=== PATIENT | male | born 1960 | race Caucasian/White ===

== ENCOUNTER 2016-12-22 09:35 | Emergency (ER) | payer MEDICAID ==
[~2016-12-22] VITALS: Ht 172.7 cm; Wt 118.2 kg
[~2016-12-22 09:35] MED LIST: ATEN25 PO; ATOR40TA28 PO; LISI-661 PO
[2016-12-22] MEDS ORDERED: BUME1TAB30 PO (09:41)
[2016-12-22] MEDS ORDERED: SPIR50 PO (09:41)
[2016-12-22] MEDS ORDERED: RANI150T7 PO (09:41)
[2016-12-22] MEDS ORDERED: FURO40 PO (09:41)
[2016-12-22] MEDS ORDERED: ONDANSETRON HCL 4 MG/2 ML VIAL IVP ONE (10:45)
[2016-12-22] MEDS ORDERED: SODIUM CHLORIDE 0.9% 1,000 ML IV ONE (10:45)
[2016-12-22] MEDS ORDERED: FAMOTIDINE 10 MG/ML 2 ML VIAL IVP ONE (10:45)
[2016-12-22] MEDS ORDERED: HYDROmorphone 2 MG/ML SYRINGE IVP ONE (10:45)
[2016-12-22 10:53] LABS: BASOPHILS % (AUTO) 0.5 % (0.0-2.0); EOSINOPHILS % (AUTO) 4.8 % (1.0-6.0); HEMATOCRIT 39.9 % (41-53); HEMOGLOBIN 13.2 g/dL (13.5-17.5); LYMPHOCYTES # (AUTO) 2.5 K/uL (1.0-4.8); LYMPHOCYTES % (AUTO) 45.2 % (22.0-44.0); MEAN CORPUSCULAR HEMOGLOBIN 32.6 pg (26.0-34.0); MEAN CORPUSCULAR VOLUME 99 fL (80-100); MONOCYTES # (AUTO) 0.8 K/uL (0.1-1.0); MONOCYTES % (AUTO) 14.9 % (2.0-9.0); NEUTROPHILS # (AUTO) 1.9 K/uL (1.8-7.7); NEUTROPHILS % (AUTO) 34.6 % (40.0-70.0); RED BLOOD CELL COUNT(AUTO) 4.03 MIL/uL (4.50-5.90); RED CELL DISTRIBUTION WIDTH 17.2 % (11.5-14.5); WHITE BLOOD COUNT (AUTO) 5.6 K/uL (4.5-11.0)
[2016-12-22 11:04] LABS: ANION GAP 6 mmol/L (8-16); CALCIUM, TOTAL 8.4 mg/dL (8.8-10.5); CARBON DIOXIDE 29 mmol/L (22-29); CHLORIDE 107 mmol/L (98-107); CREATININE 0.74 mg/dL (0.60-1.30); GLOMERULAR FILTR. RATE CALC > 60 mL/min (>60); POTASSIUM 3.7 mmol/L (3.5-5.1); SODIUM SERUM 142 mmol/L (136-145); UREA NITROGEN, BLOOD 7 mg/dL (7-18)
[2016-12-22 11:06] LABS: INR 1.2 (0.9-1.1)
[2016-12-22 11:14] LABS: B-TYPE NATRIURETIC PEPTIDE 31 pg/mL (0-100)
[2016-12-22 11:18] LABS: PLATELET COUNT (AUTO) 98 K/uL (150-450); RBC MORPHOLOGY COMMENT ABNORMAL RBC MORPH
[2016-12-22 11:33] LABS: ALANINE AMINOTRANSFERASE 42 U/L (12-78); ALBUMIN 2.3 g/dL (3.4-5.0); ASPARTATE AMINOTRANSFERASE 51 U/L (15-37); BILIRUBIN,TOTAL 2.1 mg/dL (0.1-1.0); CREATINE KINASE MB 1.1 ng/mL (0-5); CREATINE KINASE, TOTAL 227 U/L (39-308); TOTAL PROTEIN, SERUM 6.3 g/dL (6.4-8.2)
[2016-12-22 12:35] VITALS: BP 142/87
== END 2016-12-22 12:45 | disposition home or self-care (01) ==
LOC: EMS 09:37
DX: K29.70 Gastritis, unspecified, without bleeding (principal); K21.9 Gastro-esophageal reflux disease without esophagitis; I25.10 Atherosclerotic heart disease of native coronary artery without angina pectoris; I10 Essential (primary) hypertension; I25.2 Old myocardial infarction; F17.210 Nicotine dependence, cigarettes, uncomplicated
CPT/HCPCS: 71010; 76700; 80053; 82550; 82553; 83690; 83880; 84484; 85025; 85610; 85730; 93005; 96361; 96374; 96375; 99285; J1170; J2405; J3490; J7030

== ENCOUNTER 2016-12-31 21:12 | Emergency (ER) | payer MEDICAID ==
[~2016-12-31] VITALS: Ht 172.7 cm; Wt 122.7 kg
[~2016-12-31 21:12] MED LIST changes: +BUME1TAB30 PO; +FURO40 PO; +RANI150T7 PO; +SPIR50 PO
[2016-12-31] MEDS ORDERED: DICL500 PO (21:32)
[2016-12-31 21:59] LABS: BASOPHILS # (AUTO) 0.06 K/uL (0.00-0.20); EOSINOPHILS # (AUTO) 0.23 K/uL (0.00-0.70); EOSINOPHILS % (AUTO) 3.55 % (1.0-6.0); HEMATOCRIT 39.4 % (41-53); HEMOGLOBIN 13.3 g/dL (13.5-17.5); LYMPHOCYTES % (AUTO) 46.7 % (22.0-44.0); MEAN CORPUSCULAR HEMOGLOBIN 32.5 pg (26.0-34.0); MEAN CORPUSCULAR HGB CONC 33.8 G/dL (31.0-37.0); MEAN CORPUSCULAR VOLUME 96 fL (80-100); MONOCYTES # (AUTO) 0.9 K/uL (0.1-1.0); MONOCYTES % (AUTO) 13.9 % (2.0-9.0); NEUTROPHILS # (AUTO) 2.3 K/uL (1.8-7.7); NEUTROPHILS % (AUTO) 34.9 % (40.0-70.0); PLATELET COUNT (AUTO) 117 K/uL (150-450); RED CELL DISTRIBUTION WIDTH 16.2 % (11.5-14.5); WHITE BLOOD COUNT (AUTO) 6.5 K/uL (4.5-11.0)
[2016-12-31 22:10] LABS: ANION GAP 5 mmol/L (8-16); CALCIUM, TOTAL 8.9 mg/dL (8.8-10.5); CARBON DIOXIDE 28 mmol/L (22-29); CHLORIDE 102 mmol/L (98-107); GLOMERULAR FILTR. RATE CALC > 60 mL/min (>60); SODIUM SERUM 135 mmol/L (136-145); UREA NITROGEN, BLOOD 11 mg/dL (7-18)
[2016-12-31 22:14] LABS: ALANINE AMINOTRANSFERASE 89 U/L (12-78); ALBUMIN 2.4 g/dL (3.4-5.0); ASPARTATE AMINOTRANSFERASE 113 U/L (15-37); BILIRUBIN,TOTAL 1.5 mg/dL (0.1-1.0); TOTAL PROTEIN, SERUM 6.7 g/dL (6.4-8.2)
[2017-01-01 01:16] LABS: APPEARANCE,URINE CLOUDY (CLEAR); GLUCOSE, URINE (UA) NEGATIVE (NEGATIVE); KETONES,URINE NEGATIVE (NEGATIVE); LEUKOCYTE ESTERASE ,URINE NEGATIVE (NEGATIVE); OCCULT BLOOD,URINE NEGATIVE (NEGATIVE); PROTEIN,URINE NEGATIVE (NEGATIVE)
[2017-01-01 01:18] LABS: ADD UA MICROSCOPIC NO
[2017-01-01] MEDS ORDERED: ACETAMINOPHEN 325 MG TABLET PO ONE (01:30)
[2017-01-01 01:34] VITALS: BP 127/82
[2017-01-01] MEDS ORDERED: DICYCLOMINE HCL 10 MG CAPSULE PO ONE (01:45)
== END 2017-01-01 01:38 | disposition home or self-care (01) ==
LOC: EMS 21:13
DX: R10.9 Unspecified abdominal pain (principal); F17.210 Nicotine dependence, cigarettes, uncomplicated; I25.10 Atherosclerotic heart disease of native coronary artery without angina pectoris; K21.9 Gastro-esophageal reflux disease without esophagitis; I10 Essential (primary) hypertension; I25.2 Old myocardial infarction; Z79.899 Other long term (current) drug therapy
CPT/HCPCS: 99284

== ENCOUNTER 2017-01-05 16:13 | Inpatient (IN) | payer MEDICAID ==
[~2017-01-05] VITALS: Ht 177.8 cm; Wt 118.5 kg
[~2017-01-05 16:13] MED LIST changes: +DICL500 PO
[2017-01-05] MEDS ORDERED: SODIUM CHLORIDE 0.9% 500 ML IV ONE (19:00)
[2017-01-05] MEDS ORDERED: ASPIRIN 81 MG CHEWABLE TABLET PO ONE (19:00)
[2017-01-05] MEDS ORDERED: NITROGLYCERIN 2% (1 GM=INCH) PACKET TP ONE (19:00)
[2017-01-05 19:11] LABS: BASOPHILS % (AUTO) 0.4 % (0.0-2.0); EOSINOPHILS % (AUTO) 0.2 % (1.0-6.0); HEMOGLOBIN 12.8 g/dL (13.5-17.5); LYMPHOCYTES # (AUTO) 2.5 K/uL (1.0-4.8); LYMPHOCYTES % (AUTO) 24.9 % (22.0-44.0); MEAN CORPUSCULAR HGB CONC 32.8 G/dL (31.0-37.0); MEAN CORPUSCULAR VOLUME 98 fL (80-100); MONOCYTES % (AUTO) 9.6 % (2.0-9.0); NEUTROPHILS # (AUTO) 6.5 K/uL (1.8-7.7); NEUTROPHILS % (AUTO) 64.9 % (40.0-70.0); PLATELET COUNT (AUTO) 121 K/uL (150-450); RED CELL DISTRIBUTION WIDTH 16.3 % (11.5-14.5)
[2017-01-05 19:22] LABS: ANION GAP 5 mmol/L (8-16); CALCIUM, TOTAL 8.4 mg/dL (8.8-10.5); CARBON DIOXIDE 31 mmol/L (22-29); CHLORIDE 102 mmol/L (98-107); CREATININE 1.04 mg/dL (0.60-1.30); GLOMERULAR FILTR. RATE CALC > 60 mL/min (>60); POTASSIUM 4.2 mmol/L (3.5-5.1); SODIUM SERUM 138 mmol/L (136-145); UREA NITROGEN, BLOOD 24 mg/dL (7-18)
[2017-01-05 19:24] LABS: INR 1.3 (0.9-1.1); PROTHROMBIN TIME 13.8 SEC (9.4-11.6)
[2017-01-05 19:29] LABS: ALANINE AMINOTRANSFERASE 184 U/L (12-78); ALBUMIN 2.7 g/dL (3.4-5.0); ASPARTATE AMINOTRANSFERASE 159 U/L (15-37); BILIRUBIN,TOTAL 3.2 mg/dL (0.1-1.0); TOTAL PROTEIN, SERUM 6.9 g/dL (6.4-8.2)
[2017-01-05] MEDS ORDERED: ONDANSETRON HCL 4 MG/2 ML VIAL IVP ONE (19:30)
[2017-01-05] MEDS ORDERED: MORPHINE SULFATE 4 MG/ML SYRINGE IVP ONE (19:30)
[2017-01-05] MEDS ORDERED: ONDANSETRON HCL 4 MG/2 ML VIAL IVP PRN (21:00)
[2017-01-05] MEDS ORDERED: 0.9% SODIUM CHLORIDE 10 ML SYRINGE IVP PRN (21:00)
[2017-01-05] MEDS ORDERED: ACETAMINOPHEN 325 MG TABLET PO PRN (21:00)
[2017-01-05 21:27] VITALS: BP 142/79
[2017-01-05 23:22] VITALS: BP 141/89
[2017-01-06 03:59] VITALS: BP 127/61
[2017-01-06] MEDS ORDERED: MORPHINE SULFATE 2 MG/ML SYRINGE IVP PRN (05:30)
[2017-01-06] MEDS ORDERED: ONDANSETRON HCL 4 MG/2 ML VIAL IVP PRN (05:30)
[2017-01-06] MEDS ORDERED: PANTOPRAZOLE SODIUM 80 MG in SODIUM CHLORIDE 0.9% 50 ML IV ONE (06:15)
[2017-01-06] MEDS: DEXTROSE 5%-0.45% SODIUM CHL 1,000 ML IV SCH ×3 (07:01→23:33)
[2017-01-06 07:16] VITALS: BP 132/74
[2017-01-06] MEDS: PANTOPRAZOLE SODIUM 80 MG in SODIUM CHLORIDE 0.9% 500 ML IV SCH ×2 (07:40→17:13)
[2017-01-06 11:27] VITALS: BP 143/83
[2017-01-06] MEDS: CefTRIAXone 1 GM/DEXTROSE 50 ML IV SCH (14:51)
[2017-01-06 15:19] VITALS: BP 127/65
[2017-01-06 19:37] VITALS: BP 136/65
[2017-01-07] VITALS (7 sets, daily range): BP systolic 119–144; BP diastolic 7–78
[2017-01-07] MEDS: PANTOPRAZOLE SODIUM 80 MG in SODIUM CHLORIDE 0.9% 500 ML IV SCH ×2 (04:10→17:26)
[2017-01-07 06:24] LABS: BASOPHILS % (AUTO) 0.6 % (0.0-2.0); EOSINOPHILS % (AUTO) 4.4 % (1.0-6.0); HEMATOCRIT 30.6 % (41-53); HEMOGLOBIN 9.9 g/dL (13.5-17.5); MEAN CORPUSCULAR HEMOGLOBIN 32.1 pg (26.0-34.0); MEAN CORPUSCULAR HGB CONC 32.4 G/dL (31.0-37.0); MEAN CORPUSCULAR VOLUME 99 fL (80-100); MONOCYTES # (AUTO) 0.6 K/uL (0.1-1.0); MONOCYTES % (AUTO) 9.8 % (2.0-9.0); NEUTROPHILS # (AUTO) 2.5 K/uL (1.8-7.7); NEUTROPHILS % (AUTO) 39.2 % (40.0-70.0); PLATELET COUNT (AUTO) 88 K/uL (150-450); RED BLOOD CELL COUNT(AUTO) 3.09 MIL/uL (4.50-5.90); RED CELL DISTRIBUTION WIDTH 15.9 % (11.5-14.5); WHITE BLOOD COUNT (AUTO) 6.5 K/uL (4.5-11.0)
[2017-01-07 06:50] LABS: ALANINE AMINOTRANSFERASE 127 U/L (12-78); ALBUMIN 1.9 g/dL (3.4-5.0); ANION GAP 4 mmol/L (8-16); ASPARTATE AMINOTRANSFERASE 107 U/L (15-37); CARBON DIOXIDE 28 mmol/L (22-29); CHLORIDE 106 mmol/L (98-107); CREATININE 0.88 mg/dL (0.60-1.30); GLOMERULAR FILTR. RATE CALC > 60 mL/min (>60); POTASSIUM 3.4 mmol/L (3.5-5.1); SODIUM SERUM 138 mmol/L (136-145); TOTAL PROTEIN, SERUM 5.1 g/dL (6.4-8.2); UREA NITROGEN, BLOOD 16 mg/dL (7-18)
[2017-01-07] MEDS ORDERED: SODIUM CHLORIDE 0.9% 1,000 ML IV ONE ×2 (07:38→09:00)
[2017-01-07] MEDS: DEXTROSE 5%-0.45% SODIUM CHL 1,000 ML IV SCH ×2 (08:19→21:08)
[2017-01-07] MEDS ORDERED: LIDOCAINE HCL 2% VISCOUS 15 ML SOLUTION UDCUP PO ONE (09:00)
[2017-01-07] MEDS: CefTRIAXone 1 GM/DEXTROSE 50 ML IV SCH (14:22)
[2017-01-07] MEDS ORDERED: HYDROCODONE/ACETAMINOPHEN 5-325 MG TABLET PO PRN (14:30)
[2017-01-07] MEDS ORDERED: POTASSIUM CHLORIDE 20 MEQ ER TABLET PO ONE (14:30)
[2017-01-08] MEDS: PANTOPRAZOLE SODIUM 80 MG in SODIUM CHLORIDE 0.9% 500 ML IV SCH ×2 (03:09→13:41)
[2017-01-08 04:29] VITALS: BP 121/60
[2017-01-08] MEDS: DEXTROSE 5%-0.45% SODIUM CHL 1,000 ML IV SCH ×2 (05:05→13:56)
[2017-01-08 07:09] LABS: BASOPHILS % (AUTO) 0.6 % (0.0-2.0); EOSINOPHILS % (AUTO) 4.7 % (1.0-6.0); HEMATOCRIT 29.3 % (41-53); HEMOGLOBIN 9.6 g/dL (13.5-17.5); LYMPHOCYTES % (AUTO) 47.5 % (22.0-44.0); MEAN CORPUSCULAR HEMOGLOBIN 32.6 pg (26.0-34.0); MEAN CORPUSCULAR HGB CONC 32.8 G/dL (31.0-37.0); MEAN CORPUSCULAR VOLUME 99 fL (80-100); MONOCYTES # (AUTO) 0.5 K/uL (0.1-1.0); NEUTROPHILS # (AUTO) 1.5 K/uL (1.8-7.7); NEUTROPHILS % (AUTO) 35.2 % (40.0-70.0); PLATELET COUNT (AUTO) 85 K/uL (150-450); RED BLOOD CELL COUNT(AUTO) 2.95 MIL/uL (4.50-5.90); RED CELL DISTRIBUTION WIDTH 15.9 % (11.5-14.5); WHITE BLOOD COUNT (AUTO) 4.2 K/uL (4.5-11.0)
[2017-01-08 07:41] LABS: ALANINE AMINOTRANSFERASE 122 U/L (12-78); ALBUMIN 1.7 g/dL (3.4-5.0); ANION GAP 5 mmol/L (8-16); ASPARTATE AMINOTRANSFERASE 106 U/L (15-37); BILIRUBIN,TOTAL 1.8 mg/dL (0.1-1.0); CARBON DIOXIDE 25 mmol/L (22-29); CHLORIDE 107 mmol/L (98-107); CREATININE 0.84 mg/dL (0.60-1.30); GLOMERULAR FILTR. RATE CALC > 60 mL/min (>60); POTASSIUM 3.6 mmol/L (3.5-5.1); SODIUM SERUM 137 mmol/L (136-145); UREA NITROGEN, BLOOD 11 mg/dL (7-18)
[2017-01-08 08:31] VITALS: BP 114/62
[2017-01-08 12:17] LABS: HEPATITIS Bs ANTIGEN SCREEN P Negative (Negative); HEPATITIS C AB SCREEN <0.1 s/co ratio (0.0-0.9)
[2017-01-08 12:20] VITALS: BP 128/68
[2017-01-08] MEDS: CefTRIAXone 1 GM/DEXTROSE 50 ML IV SCH (14:38)
[2017-01-08] MEDS ORDERED: LANS30 PO (15:15)
[2017-01-08] MEDS ORDERED: CLAR500T3 PO (15:16)
[2017-01-08] MEDS ORDERED: AMOX500T2 PO (15:17)
[2017-01-08] MEDS ORDERED: PROPOFOL 1% 20 ML VIAL IVP ONE (18:59)
[2017-01-08] MEDS ORDERED: LIDOCAINE HCL/PF 2% 5 ML VIAL IM ONE (18:59)
[2017-01-08] MEDS ORDERED: METOCLOPRAMIDE HCL 5 MG/ML 2 ML VIAL IVP ONE (18:59)
== END 2017-01-08 19:00 | disposition home or self-care (01) | DRG 241 ==
LOC: EMS 16:14 → 5N 20:35
PROVIDERS: ADMIT Family Medicine; ATTEND Family Medicine
PROC: 0DB68ZX Excision of Stomach, Via Natural or Artificial Opening Endoscopic, Diagnostic (ICD-10-PCS; principal; 2017-01-07 09:30)
DX: K26.9 Duodenal ulcer, unspecified as acute or chronic, without hemorrhage or perforation (principal); E43 Unspecified severe protein-calorie malnutrition; K76.6 Portal hypertension; K29.70 Gastritis, unspecified, without bleeding; K92.2 Gastrointestinal hemorrhage, unspecified; K21.0 Gastro-esophageal reflux disease with esophagitis; K31.89 Other diseases of stomach and duodenum; H53.8 Other visual disturbances; I25.10 Atherosclerotic heart disease of native coronary artery without angina pectoris; B17.9 Acute viral hepatitis, unspecified; F17.210 Nicotine dependence, cigarettes, uncomplicated; I10 Essential (primary) hypertension; K27.9 Peptic ulcer, site unspecified, unspecified as acute or chronic, without hemorrhage or perforation; Z68.37 Body mass index [BMI] 37.0-37.9, adult; Z95.5 Presence of coronary angioplasty implant and graft; Z79.82 Long term (current) use of aspirin; I25.2 Old myocardial infarction
CPT/HCPCS: 76705; 80074; 80307; 82948; 83735; 88305; 88312; 93005; 96361; 96374; 96375; 99285; C9113; J0696; J2270; J2405; J2704; J2765; J3490; J7030; J7040; J7050

== ENCOUNTER 2017-02-11 21:52 | Inpatient (IN) | payer MEDICAID ==
[~2017-02-11] VITALS: Ht 172.7 cm; Wt 128.0 kg
[~2017-02-11 21:52] MED LIST changes: +AMOX500T2 PO; +CLAR500T3 PO; -DICL500 PO; +LANS30 PO; -RANI150T7 PO
[2017-02-11] MEDS ORDERED: RANI150T7 PO (22:36)
[2017-02-11 23:05] LABS: BASOPHILS # (AUTO) 0.12 K/uL (0.00-0.20); EOSINOPHILS # (AUTO) 0.13 K/uL (0.00-0.70); EOSINOPHILS % (AUTO) 2.29 % (1.0-6.0); HEMATOCRIT 32.4 % (41-53); HEMOGLOBIN 10.9 g/dL (13.5-17.5); LYMPHOCYTES # (AUTO) 1.9 K/uL (1.0-4.8); LYMPHOCYTES % (AUTO) 32.9 % (22.0-44.0); MEAN CORPUSCULAR HEMOGLOBIN 31.5 pg (26.0-34.0); MEAN CORPUSCULAR HGB CONC 33.8 G/dL (31.0-37.0); MEAN CORPUSCULAR VOLUME 93 fL (80-100); MONOCYTES # (AUTO) 0.7 K/uL (0.1-1.0); MONOCYTES % (AUTO) 12.7 % (2.0-9.0); NEUTROPHILS # (AUTO) 2.9 K/uL (1.8-7.7); PLATELET COUNT (AUTO) 103 K/uL (150-450); RED BLOOD CELL COUNT(AUTO) 3.48 MIL/uL (4.50-5.90); WHITE BLOOD COUNT (AUTO) 5.8 K/uL (4.5-11.0)
[2017-02-11 23:14] LABS: INR 1.3 (0.9-1.1); PROTHROMBIN TIME 13.7 SEC (9.4-11.6)
[2017-02-11 23:17] LABS: RBC MORPHOLOGY COMMENT ABNORMAL RBC MORPH
[2017-02-11 23:21] LABS: B-TYPE NATRIURETIC PEPTIDE 10 pg/mL (0-100)
[2017-02-11 23:43] LABS: ALANINE AMINOTRANSFERASE 469 U/L (12-78); ALBUMIN 2.1 g/dL (3.4-5.0); ANION GAP 7 mmol/L (8-16); BILIRUBIN,TOTAL 1.5 mg/dL (0.1-1.0); CARBON DIOXIDE 23 mmol/L (22-29); CHLORIDE 105 mmol/L (98-107); CREATININE 1.03 mg/dL (0.60-1.30); GLOMERULAR FILTR. RATE CALC > 60 mL/min (>60); POTASSIUM 4.7 mmol/L (3.5-5.1); SODIUM SERUM 135 mmol/L (136-145); TOTAL PROTEIN, SERUM 5.6 g/dL (6.4-8.2); UREA NITROGEN, BLOOD 28 mg/dL (7-18)
[2017-02-11 23:54] LABS: ASPARTATE AMINOTRANSFERASE 1493 U/L (15-37)
[2017-02-12 00:15] LABS: CALCIUM, TOTAL 8.1 mg/dL (8.8-10.5)
[2017-02-12 00:23] LABS: APPEARANCE,URINE CLOUDY (CLEAR); GLUCOSE, URINE (UA) NEGATIVE (NEGATIVE); KETONES,URINE NEGATIVE (NEGATIVE); LEUKOCYTE ESTERASE ,URINE NEGATIVE (NEGATIVE); OCCULT BLOOD,URINE LARGE (NEGATIVE); PROTEIN,URINE POS 1+ (NEGATIVE)
[2017-02-12] MEDS ORDERED: ASPIRIN 325 MG TABLET PO ONE (00:30)
[2017-02-12] MEDS ORDERED: ONDANSETRON HCL 4 MG/2 ML VIAL IVP ONE (00:30)
[2017-02-12] MEDS ORDERED: HYDROmorphone 2 MG/ML SYRINGE IVP ONE (00:30)
[2017-02-12 00:31] LABS: ADD UA MICROSCOPIC YES
[2017-02-12 01:11] LABS: SQUAMOUS EPITHELIAL CELL,UR Rare /LPF (None Seen)
[2017-02-12 01:16] LABS: CREATINE KINASE, TOTAL 77565 U/L (39-308)
[2017-02-12] MEDS ORDERED: BARIUM SULFATE 0.1% SUSPENSION 450 ML BOTTLE PO ONE (02:30)
[2017-02-12] MEDS ORDERED: ACETAMINOPHEN 325 MG TABLET PO PRN ×2 (02:30→10:45)
[2017-02-12] MEDS ORDERED: 0.9% SODIUM CHLORIDE 10 ML SYRINGE IVP PRN (02:30)
[2017-02-12] MEDS ORDERED: SODIUM CHLORIDE 0.45% 1,000 ML IV ONE (02:30)
[2017-02-12] MEDS ORDERED: ONDANSETRON HCL 4 MG/2 ML VIAL IVP PRN (02:30)
[2017-02-12 09:00] VITALS: BP 115/73
[2017-02-12] MEDS ORDERED: FUROSEMIDE 40 MG TABLET PO SCH (11:30)
[2017-02-12 11:35] VITALS: BP 118/57
[2017-02-12] MEDS: ATORVASTATIN CALCIUM 40 MG TABLET PO SCH (11:40)
[2017-02-12] MEDS: NITROGLYCERIN 2% (1 GM=INCH) PACKET TP SCH ×2 (11:41→20:16)
[2017-02-12] MEDS: ATENOLOL 25 MG TABLET PO SCH (11:41)
[2017-02-12] MEDS: LISINOPRIL 10 MG TABLET PO SCH (11:41)
[2017-02-12] MEDS ORDERED: BUMETANIDE 1 MG TABLET PO SCH (12:00)
[2017-02-12] MEDS ORDERED: SODIUM CHLORIDE 0.45% 1,000 ML IV SCH (12:30)
[2017-02-12] MEDS ORDERED: SODIUM BICARBONATE 75 MEQ in SODIUM CHLORIDE 0.45% 1,000 ML IV ONE (13:15)
[2017-02-12 13:32] LABS: CREATINE KINASE MB 25.5 ng/mL (0-5)
[2017-02-12] MEDS ORDERED: PNEUMOCOCCAL VACCINE POLYVALENT 0.5 ML VIAL [PPSV23] IM ONE (14:15)
[2017-02-12 14:39] LABS: ANION GAP 3 mmol/L (8-16); BILIRUBIN,TOTAL 1.8 mg/dL (0.1-1.0); CALCIUM, TOTAL 7.5 mg/dL (8.8-10.5); CARBON DIOXIDE 27 mmol/L (22-29); CHLORIDE 101 mmol/L (98-107); CREATININE 0.86 mg/dL (0.60-1.30); GLOMERULAR FILTR. RATE CALC > 60 mL/min (>60); POTASSIUM 4.8 mmol/L (3.5-5.1); SODIUM SERUM 131 mmol/L (136-145); UREA NITROGEN, BLOOD 25 mg/dL (7-18)
[2017-02-12 14:40] LABS: ALANINE AMINOTRANSFERASE 423 U/L (12-78)
[2017-02-12 14:41] LABS: ASPARTATE AMINOTRANSFERASE 1173 U/L (15-37)
[2017-02-12] MEDS: HEPARIN SODIUM,PORCINE 5,000 UNITS/ML VIAL SQ SCH (15:09)
[2017-02-12] MEDS: HYDROCODONE/ACETAMINOPHEN 5-325 MG TABLET PO PRN (15:34)
[2017-02-12 15:35] VITALS: BP 111/61
[2017-02-12 19:33] LABS: CREATINE KINASE MB 18.7 ng/mL (0-5)
[2017-02-12 19:56] VITALS: BP 112/56
[2017-02-12 23:38] VITALS: BP 111/56
[2017-02-13] VITALS (7 sets, daily range): BP systolic 105–121; BP diastolic 50–67
[2017-02-13] MEDS: HEPARIN SODIUM,PORCINE 5,000 UNITS/ML VIAL SQ SCH ×4 (00:02→23:42)
[2017-02-13] MEDS: NITROGLYCERIN 2% (1 GM=INCH) PACKET TP SCH ×5 (00:03→23:42)
[2017-02-13] MEDS: HYDROCODONE/ACETAMINOPHEN 5-325 MG TABLET PO PRN ×3 (06:30→22:23)
[2017-02-13] MEDS: RANITIDINE HCL 150 MG TABLET PO SCH ×2 (08:02→21:16)
[2017-02-13] MEDS: ATENOLOL 25 MG TABLET PO SCH (08:02)
[2017-02-13] MEDS: LISINOPRIL 10 MG TABLET PO SCH (08:03)
[2017-02-13] MEDS: ATORVASTATIN CALCIUM 40 MG TABLET PO SCH (08:03)
[2017-02-13] MEDS ORDERED: SODIUM CHLORIDE 0.9% 500 ML IV ONE (08:30)
[2017-02-13 09:56] LABS: ANION GAP 2 mmol/L (8-16); CALCIUM, TOTAL 7.8 mg/dL (8.8-10.5); CARBON DIOXIDE 29 mmol/L (22-29); CHLORIDE 100 mmol/L (98-107); CREATININE 0.97 mg/dL (0.60-1.30); GLOMERULAR FILTR. RATE CALC > 60 mL/min (>60); POTASSIUM 5.2 mmol/L (3.5-5.1); SODIUM SERUM 131 mmol/L (136-145); THYROID STIMULATING HORMONE 2.68 uIU/mL (0.36-3.74); UREA NITROGEN, BLOOD 23 mg/dL (7-18)
[2017-02-14] VITALS (7 sets, daily range): BP systolic 113–119; BP diastolic 52–81
[2017-02-14] MEDS: NITROGLYCERIN 2% (1 GM=INCH) PACKET TP SCH ×3 (06:11→18:06)
[2017-02-14 07:44] LABS: ANION GAP 3 mmol/L (8-16); CALCIUM, TOTAL 7.5 mg/dL (8.8-10.5); CARBON DIOXIDE 27 mmol/L (22-29); CHLORIDE 98 mmol/L (98-107); GLOMERULAR FILTR. RATE CALC > 60 mL/min (>60); POTASSIUM 4.9 mmol/L (3.5-5.1); SODIUM SERUM 128 mmol/L (136-145); UREA NITROGEN, BLOOD 22 mg/dL (7-18)
[2017-02-14] MEDS: RANITIDINE HCL 150 MG TABLET PO SCH ×2 (08:20→20:37)
[2017-02-14] MEDS: LISINOPRIL 10 MG TABLET PO SCH (08:20)
[2017-02-14] MEDS: ATENOLOL 25 MG TABLET PO SCH (08:20)
[2017-02-14] MEDS: HEPARIN SODIUM,PORCINE 5,000 UNITS/ML VIAL SQ SCH ×2 (08:20→15:55)
[2017-02-14] MEDS: ATORVASTATIN CALCIUM 40 MG TABLET PO SCH (08:21)
[2017-02-14 09:05] LABS: CREATINE KINASE MB 11.9 ng/mL (0-5)
[2017-02-14 09:17] LABS: CREATINE KINASE, TOTAL 14569 U/L (39-308)
[2017-02-14 16:56] LABS: APPEARANCE,URINE CLEAR (CLEAR); GLUCOSE, URINE (UA) NEGATIVE (NEGATIVE); KETONES,URINE NEGATIVE (NEGATIVE); LEUKOCYTE ESTERASE ,URINE NEGATIVE (NEGATIVE); OCCULT BLOOD,URINE NEGATIVE (NEGATIVE); PROTEIN,URINE NEGATIVE (NEGATIVE)
[2017-02-14 17:06] LABS: RBC,URINE 0-2 /HPF (0-2); SQUAMOUS EPITHELIAL CELL,UR Rare /LPF (None Seen); WBC,URINE 0-2 /HPF (0-5)
[2017-02-14] MEDS: HYDROCODONE/ACETAMINOPHEN 5-325 MG TABLET PO PRN (18:06)
[2017-02-15] MEDS: NITROGLYCERIN 2% (1 GM=INCH) PACKET TP SCH ×5 (00:30→23:52)
[2017-02-15] MEDS: HEPARIN SODIUM,PORCINE 5,000 UNITS/ML VIAL SQ SCH ×4 (00:30→23:52)
[2017-02-15 04:22] VITALS: BP 125/62
[2017-02-15 06:30] LABS: BASOPHILS # (AUTO) 0.05 K/uL (0.00-0.20); BASOPHILS % (AUTO) 0.7 % (0.0-2.0); EOSINOPHILS # (AUTO) 0.25 K/uL (0.00-0.70); EOSINOPHILS % (AUTO) 3.53 % (1.0-6.0); HEMATOCRIT 33.8 % (41-53); HEMOGLOBIN 11.1 g/dL (13.5-17.5); LYMPHOCYTES # (AUTO) 2.9 K/uL (1.0-4.8); LYMPHOCYTES % (AUTO) 40.3 % (22.0-44.0); MEAN CORPUSCULAR HEMOGLOBIN 31.8 pg (26.0-34.0); MEAN CORPUSCULAR VOLUME 96 fL (80-100); MONOCYTES % (AUTO) 13.4 % (2.0-9.0); PLATELET COUNT (AUTO) 104 K/uL (150-450); RED CELL DISTRIBUTION WIDTH 17.4 % (11.5-14.5); WHITE BLOOD COUNT (AUTO) 7.1 K/uL (4.5-11.0)
[2017-02-15 06:48] LABS: RBC MORPHOLOGY COMMENT ABNORMAL RBC MORPH
[2017-02-15 07:01] LABS: ALANINE AMINOTRANSFERASE 347 U/L (12-78); ALBUMIN 1.7 g/dL (3.4-5.0); ANION GAP 2 mmol/L (8-16); ASPARTATE AMINOTRANSFERASE 716 U/L (15-37); BILIRUBIN,TOTAL 1.6 mg/dL (0.1-1.0); CALCIUM, TOTAL 8.1 mg/dL (8.8-10.5); CARBON DIOXIDE 28 mmol/L (22-29); CHLORIDE 97 mmol/L (98-107); CREATININE 0.78 mg/dL (0.60-1.30); GLOMERULAR FILTR. RATE CALC > 60 mL/min (>60); SODIUM SERUM 127 mmol/L (136-145); TOTAL PROTEIN, SERUM 4.6 g/dL (6.4-8.2); UREA NITROGEN, BLOOD 19 mg/dL (7-18)
[2017-02-15] MEDS: ATENOLOL 25 MG TABLET PO SCH (08:05)
[2017-02-15] MEDS: RANITIDINE HCL 150 MG TABLET PO SCH ×2 (08:05→21:51)
[2017-02-15] MEDS: LISINOPRIL 10 MG TABLET PO SCH (08:05)
[2017-02-15] MEDS: ATORVASTATIN CALCIUM 40 MG TABLET PO SCH (08:05)
[2017-02-15 08:12] LABS: CREATINE KINASE, TOTAL 9392 U/L (39-308)
[2017-02-15 09:16] LABS: CREATININE, URINE (mALB) 65.6 mg/dL (Not Estab.)
[2017-02-15] MEDS: BUMETANIDE 1 MG TABLET PO SCH (11:33)
[2017-02-15 12:10] LABS: MYOGLOBIN URINE <2 ng/mL (0-13)
[2017-02-15 13:00] VITALS: BP 120/60
[2017-02-15 15:35] VITALS: BP 129/72
[2017-02-15] MEDS: HYDROCODONE/ACETAMINOPHEN 5-325 MG TABLET PO PRN (15:58)
[2017-02-15 20:51] VITALS: BP 104/62
[2017-02-15 23:58] VITALS: BP 113/70
[2017-02-16 04:02] VITALS: BP 120/58
[2017-02-16] MEDS: NITROGLYCERIN 2% (1 GM=INCH) PACKET TP SCH ×4 (06:13→23:46)
[2017-02-16 07:14] LABS: ANION GAP 2 mmol/L (8-16); CALCIUM, TOTAL 8.2 mg/dL (8.8-10.5); CARBON DIOXIDE 28 mmol/L (22-29); CHLORIDE 97 mmol/L (98-107); CREATININE 0.79 mg/dL (0.60-1.30); GLOMERULAR FILTR. RATE CALC > 60 mL/min (>60); POTASSIUM 5.6 mmol/L (3.5-5.1); SODIUM SERUM 127 mmol/L (136-145); UREA NITROGEN, BLOOD 19 mg/dL (7-18)
[2017-02-16 07:15] VITALS: BP 108/46
[2017-02-16 07:37] LABS: CREATINE KINASE MB 13.4 ng/mL (0-5)
[2017-02-16 07:41] LABS: CREATINE KINASE, TOTAL 8524 U/L (39-308)
[2017-02-16 08:19] LABS: ANA,IFA (TITER & PATTERN) Negative
[2017-02-16] MEDS: ATENOLOL 25 MG TABLET PO SCH (08:45)
[2017-02-16] MEDS: ATORVASTATIN CALCIUM 40 MG TABLET PO SCH (08:45)
[2017-02-16] MEDS: HEPARIN SODIUM,PORCINE 5,000 UNITS/ML VIAL SQ SCH ×3 (08:45→23:46)
[2017-02-16] MEDS: BUMETANIDE 1 MG TABLET PO SCH ×2 (08:46→09:00)
[2017-02-16] MEDS: RANITIDINE HCL 150 MG TABLET PO SCH ×2 (08:46→20:28)
[2017-02-16] MEDS ORDERED: BUMETANIDE 0.25 MG/ML 4 ML VIAL IVP ONE (11:00)
[2017-02-16 11:02] VITALS: BP 122/73
[2017-02-16] MEDS: HYDROCODONE/ACETAMINOPHEN 5-325 MG TABLET PO PRN ×2 (15:10→22:02)
[2017-02-16 16:30] LABS: ALANINE AMINOTRANSFERASE 392 U/L (12-78); ALBUMIN 1.8 g/dL (3.4-5.0); ANION GAP 5 mmol/L (8-16); ASPARTATE AMINOTRANSFERASE 771 U/L (15-37); BILIRUBIN,TOTAL 1.8 mg/dL (0.1-1.0); CALCIUM, TOTAL 8.3 mg/dL (8.8-10.5); CARBON DIOXIDE 28 mmol/L (22-29); CHLORIDE 96 mmol/L (98-107); CREATININE 0.99 mg/dL (0.60-1.30); GLOMERULAR FILTR. RATE CALC > 60 mL/min (>60); SODIUM SERUM 129 mmol/L (136-145); TOTAL PROTEIN, SERUM 5.1 g/dL (6.4-8.2); UREA NITROGEN, BLOOD 20 mg/dL (7-18)
[2017-02-16 16:43] VITALS: BP 134/52
[2017-02-16 19:27] VITALS: BP 122/55
[2017-02-17] VITALS (7 sets, daily range): BP systolic 107–125; BP diastolic 46–64
[2017-02-17 04:12] LABS: TOTAL PROTEIN URINE 5.5 mg/dL (Not Estab.)
[2017-02-17] MEDS: NITROGLYCERIN 2% (1 GM=INCH) PACKET TP SCH ×4 (06:08→23:53)
[2017-02-17 08:03] LABS: ALANINE AMINOTRANSFERASE 392 U/L (12-78); ALBUMIN 1.8 g/dL (3.4-5.0); ANION GAP 1 mmol/L (8-16); ASPARTATE AMINOTRANSFERASE 736 U/L (15-37); BILIRUBIN,TOTAL 1.8 mg/dL (0.1-1.0); CALCIUM, TOTAL 8.2 mg/dL (8.8-10.5); CARBON DIOXIDE 31 mmol/L (22-29); CHLORIDE 99 mmol/L (98-107); CREATININE 0.97 mg/dL (0.60-1.30); GLOMERULAR FILTR. RATE CALC > 60 mL/min (>60); POTASSIUM 4.9 mmol/L (3.5-5.1); SODIUM SERUM 131 mmol/L (136-145); TOTAL PROTEIN, SERUM 4.9 g/dL (6.4-8.2); UREA NITROGEN, BLOOD 19 mg/dL (7-18)
[2017-02-17] MEDS: RANITIDINE HCL 150 MG TABLET PO SCH ×2 (08:15→19:47)
[2017-02-17] MEDS: ATORVASTATIN CALCIUM 40 MG TABLET PO SCH (08:15)
[2017-02-17] MEDS: HYDROCODONE/ACETAMINOPHEN 5-325 MG TABLET PO PRN ×2 (08:15→17:03)
[2017-02-17] MEDS: BUMETANIDE 1 MG TABLET PO SCH (08:15)
[2017-02-17] MEDS: HEPARIN SODIUM,PORCINE 5,000 UNITS/ML VIAL SQ SCH ×3 (08:15→23:52)
[2017-02-17] MEDS: ATENOLOL 25 MG TABLET PO SCH (08:16)
[2017-02-17 08:54] LABS: CREATINE KINASE MB 16.9 ng/mL (0-5); CREATINE KINASE, TOTAL 8791 U/L (39-308)
[2017-02-17 12:50] LABS: HEPATITIS Bs ANTIGEN SCREEN P Negative (Negative); HEPATITIS C AB SCREEN <0.1 s/co ratio (0.0-0.9)
[2017-02-18 04:21] VITALS: BP 122/65
[2017-02-18] MEDS: NITROGLYCERIN 2% (1 GM=INCH) PACKET TP SCH ×4 (06:00→23:28)
[2017-02-18 06:37] LABS: ANION GAP 1 mmol/L (8-16); CARBON DIOXIDE 31 mmol/L (22-29); CHLORIDE 100 mmol/L (98-107); CREATININE 0.98 mg/dL (0.60-1.30); GLOMERULAR FILTR. RATE CALC > 60 mL/min (>60); SODIUM SERUM 132 mmol/L (136-145); UREA NITROGEN, BLOOD 23 mg/dL (7-18)
[2017-02-18 07:20] VITALS: BP 108/63
[2017-02-18] MEDS: HEPARIN SODIUM,PORCINE 5,000 UNITS/ML VIAL SQ SCH ×3 (08:23→23:28)
[2017-02-18] MEDS: HYDROCODONE/ACETAMINOPHEN 5-325 MG TABLET PO PRN ×2 (08:24→17:01)
[2017-02-18 08:25] LABS: CREATINE KINASE MB 17.6 ng/mL (0-5)
[2017-02-18 08:26] LABS: CREATINE KINASE, TOTAL 10621 U/L (39-308)
[2017-02-18] MEDS: BUMETANIDE 1 MG TABLET PO SCH (08:29)
[2017-02-18] MEDS: RANITIDINE HCL 150 MG TABLET PO SCH ×2 (08:29→20:11)
[2017-02-18 11:14] VITALS: BP 122/51
[2017-02-18] MEDS: ATENOLOL 25 MG TABLET PO SCH (12:25)
[2017-02-18 15:20] VITALS: BP 109/49
[2017-02-18 20:11] VITALS: BP 111/58
[2017-02-18 23:47] VITALS: BP 105/56
[2017-02-19 04:00] VITALS: BP 111/56
[2017-02-19] MEDS: NITROGLYCERIN 2% (1 GM=INCH) PACKET TP SCH ×3 (05:50→23:47)
[2017-02-19 06:32] LABS: INR 1.4 (0.9-1.1); PROTHROMBIN TIME 14.6 SEC (9.4-11.6)
[2017-02-19 07:02] LABS: ALANINE AMINOTRANSFERASE 366 U/L (12-78); ALBUMIN 1.7 g/dL (3.4-5.0); ANION GAP 3 mmol/L (8-16); ASPARTATE AMINOTRANSFERASE 675 U/L (15-37); BILIRUBIN,TOTAL 1.5 mg/dL (0.1-1.0); CALCIUM, TOTAL 7.9 mg/dL (8.8-10.5); CARBON DIOXIDE 30 mmol/L (22-29); CHLORIDE 102 mmol/L (98-107); GLOMERULAR FILTR. RATE CALC > 60 mL/min (>60); POTASSIUM 4.3 mmol/L (3.5-5.1); SODIUM SERUM 135 mmol/L (136-145); TOTAL PROTEIN, SERUM 4.8 g/dL (6.4-8.2); UREA NITROGEN, BLOOD 23 mg/dL (7-18)
[2017-02-19 07:15] VITALS: BP 109/59
[2017-02-19] MEDS: HEPARIN SODIUM,PORCINE 5,000 UNITS/ML VIAL SQ SCH ×3 (08:26→23:46)
[2017-02-19] MEDS: BUMETANIDE 1 MG TABLET PO SCH (08:26)
[2017-02-19] MEDS: ATENOLOL 25 MG TABLET PO SCH (08:27)
[2017-02-19] MEDS: RANITIDINE HCL 150 MG TABLET PO SCH ×2 (08:27→20:25)
[2017-02-19 08:33] LABS: CREATINE KINASE, TOTAL 7714 U/L (39-308)
[2017-02-19 11:15] VITALS: BP 114/61
[2017-02-19 15:36] VITALS: BP 103/51
[2017-02-19 19:56] VITALS: BP 100/55
[2017-02-19 23:46] VITALS: BP 109/53
[2017-02-20 05:10] VITALS: BP 109/53
[2017-02-20] MEDS: NITROGLYCERIN 2% (1 GM=INCH) PACKET TP SCH ×3 (05:57→10:13)
[2017-02-20 07:10] VITALS: BP 108/49
[2017-02-20 07:29] LABS: CREATINE KINASE MB 5.9 ng/mL (0-5)
[2017-02-20] MEDS: HEPARIN SODIUM,PORCINE 5,000 UNITS/ML VIAL SQ SCH (08:03)
[2017-02-20] MEDS: ATENOLOL 25 MG TABLET PO SCH (08:03)
[2017-02-20] MEDS: BUMETANIDE 1 MG TABLET PO SCH (08:03)
[2017-02-20] MEDS: RANITIDINE HCL 150 MG TABLET PO SCH (08:03)
[2017-02-20 11:00] VITALS: BP 111/63
[2017-02-20] MEDS ORDERED: BUME1TAB30 PO ×4 (14:19→14:31)
== END 2017-02-20 15:07 | disposition home or self-care (01) ==
LOC: EMS 21:53 → 5S 02-12 07:17 → 6N 02-17 21:50
PROVIDERS: ADMIT Family Medicine; ATTEND Family Medicine
DX: B17.9 Acute viral hepatitis, unspecified (principal); E43 Unspecified severe protein-calorie malnutrition; M62.82 Rhabdomyolysis; E87.1 Hypo-osmolality and hyponatremia; Z68.41 Body mass index [BMI] 40.0-44.9, adult; E88.09 Other disorders of plasma-protein metabolism, not elsewhere classified; K74.60 Unspecified cirrhosis of liver; I12.9 Hypertensive chronic kidney disease with stage 1 through stage 4 chronic kidney disease, or unspecified chronic kidney disease; E78.5 Hyperlipidemia, unspecified; I25.10 Atherosclerotic heart disease of native coronary artery without angina pectoris; E66.9 Obesity, unspecified; E87.5 Hyperkalemia; K76.0 Fatty (change of) liver, not elsewhere classified; R60.0 Localized edema; D64.9 Anemia, unspecified; T50.905A Adverse effect of unspecified drugs, medicaments and biological substances, initial encounter; X58.XXXA Exposure to other specified factors, initial encounter; N18.2 Chronic kidney disease, stage 2 (mild); K29.50 Unspecified chronic gastritis without bleeding; K21.9 Gastro-esophageal reflux disease without esophagitis; Z95.5 Presence of coronary angioplasty implant and graft; Z87.891 Personal history of nicotine dependence; Z83.3 Family history of diabetes mellitus; Z82.49 Family history of ischemic heart disease and other diseases of the circulatory system; Y93.89 Activity, other specified; Y92.89 Other specified places as the place of occurrence of the external cause; Y99.8 Other external cause status; Z79.82 Long term (current) use of aspirin; Z79.899 Other long term (current) drug therapy; Z87.11 Personal history of peptic ulcer disease
CPT/HCPCS: 74176; 76705; 80074; 82043; 82085; 82105; 82247; 82248; 82533; 82570; 83605; 83874; 83935; 84133; 84156; 84166; 84300; 84443; 84450; 84460; 86038; 86430; 87086; 90471; 93005; 96361; 96374; 96375; 99285; J1170; J1644; J2405; J3490; J7040

== ENCOUNTER 2017-03-25 21:31 | Emergency (ER) | payer MEDICAID ==
[~2017-03-25] VITALS: Ht 172.7 cm; Wt 118.2 kg
[~2017-03-25 21:31] MED LIST changes: -AMOX500T2 PO; -ATOR40TA28 PO; -CLAR500T3 PO; -FURO40 PO; -LANS30 PO; -LISI-661 PO; +RANI150T7 PO; -SPIR50 PO
[2017-03-25 22:20] LABS: ADD UA MICROSCOPIC YES; APPEARANCE,URINE CLOUDY (CLEAR); GLUCOSE, URINE (UA) NEGATIVE (NEGATIVE); KETONES,URINE TRACE mg/dL (NEGATIVE); LEUKOCYTE ESTERASE ,URINE SMALL (NEGATIVE); OCCULT BLOOD,URINE NEGATIVE (NEGATIVE); PROTEIN,URINE TRACE (NEGATIVE)
[2017-03-25 22:21] LABS: BASOPHILS # (AUTO) 0.06 K/uL (0.00-0.20); BASOPHILS % (AUTO) 1.3 % (0.0-2.0); EOSINOPHILS # (AUTO) 0.16 K/uL (0.00-0.70); EOSINOPHILS % (AUTO) 3.08 % (1.0-6.0); HEMOGLOBIN 9.5 g/dL (13.5-17.5); LYMPHOCYTES # (AUTO) 1.5 K/uL (1.0-4.8); LYMPHOCYTES % (AUTO) 30.1 % (22.0-44.0); MEAN CORPUSCULAR HEMOGLOBIN 31.6 pg (26.0-34.0); MEAN CORPUSCULAR HGB CONC 32.8 G/dL (31.0-37.0); MEAN CORPUSCULAR VOLUME 96 fL (80-100); MONOCYTES # (AUTO) 0.7 K/uL (0.1-1.0); NEUTROPHILS # (AUTO) 2.7 K/uL (1.8-7.7); NEUTROPHILS % (AUTO) 52.6 % (40.0-70.0); RED BLOOD CELL COUNT(AUTO) 3.01 MIL/uL (4.50-5.90); RED CELL DISTRIBUTION WIDTH 18.6 % (11.5-14.5); WHITE BLOOD COUNT (AUTO) 5.1 K/uL (4.5-11.0)
[2017-03-25 22:26] LABS: INR 1.4 (0.9-1.1); PROTHROMBIN TIME 15.2 SEC (9.4-11.6)
[2017-03-25 22:28] LABS: SQUAMOUS EPITHELIAL CELL,UR Few /LPF (None Seen)
[2017-03-25 22:29] LABS: ANION GAP 6 mmol/L (8-16); CALCIUM, TOTAL 7.9 mg/dL (8.8-10.5); CARBON DIOXIDE 28 mmol/L (22-29); CHLORIDE 108 mmol/L (98-107); CREATININE 1.07 mg/dL (0.60-1.30); GLOMERULAR FILTR. RATE CALC > 60 mL/min (>60); POTASSIUM 3.8 mmol/L (3.5-5.1); SODIUM SERUM 142 mmol/L (136-145); UREA NITROGEN, BLOOD 10 mg/dL (7-18)
[2017-03-25 22:31] LABS: RBC,URINE 0-2 /HPF (0-2)
[2017-03-25 22:37] LABS: PLATELET COUNT (AUTO) 82 K/uL (150-450); RBC MORPHOLOGY COMMENT ABNORMAL RBC MORPH
[2017-03-25 22:40] LABS: B-TYPE NATRIURETIC PEPTIDE 53 pg/mL (0-100)
[2017-03-25 22:47] LABS: ALANINE AMINOTRANSFERASE 43 U/L (12-78); ALBUMIN 1.8 g/dL (3.4-5.0); ASPARTATE AMINOTRANSFERASE 62 U/L (15-37); BILIRUBIN,TOTAL 2.8 mg/dL (0.1-1.0); TOTAL PROTEIN, SERUM 5.2 g/dL (6.4-8.2)
[2017-03-25 23:58] LABS: CREATINE KINASE MB 2.9 ng/mL (0-5); CREATINE KINASE, TOTAL 629 U/L (39-308)
[2017-03-26 00:09] VITALS: BP 136/74
== END 2017-03-26 00:25 | disposition home or self-care (01) ==
LOC: EMS 21:33
DX: E88.09 Other disorders of plasma-protein metabolism, not elsewhere classified (principal); R60.0 Localized edema; I11.0 Hypertensive heart disease with heart failure; I50.9 Heart failure, unspecified; I25.2 Old myocardial infarction; I25.10 Atherosclerotic heart disease of native coronary artery without angina pectoris; K21.9 Gastro-esophageal reflux disease without esophagitis; Z87.891 Personal history of nicotine dependence
CPT/HCPCS: 87086; 93005; 99285

== ENCOUNTER 2018-01-13 19:38 | Inpatient (IN) | payer MEDICAID ==
[~2018-01-13] VITALS: Ht 172.7 cm; Wt 135.3 kg
[~2018-01-13 19:38] MED LIST changes: -ATEN25 PO; +ATEN25TA PO; +BUME1TAB17 PO; -BUME1TAB30 PO
[2018-01-13] MEDS ORDERED: SPIR50 PO (20:02)
[2018-01-13] MEDS ORDERED: SUCR1TAB PO (20:02)
[2018-01-13] MEDS ORDERED: KDUR10 PO (20:02)
[2018-01-13] MEDS ORDERED: PANT40TA25 PO (20:02)
[2018-01-13 20:43] LABS: EOSINOPHILS % (AUTO) 6.3 % (1.0-6.0); HEMATOCRIT 35.8 % (41-53); LYMPHOCYTES # (AUTO) 2.4 K/uL (1.0-4.8); LYMPHOCYTES % (AUTO) 43.2 % (22.0-44.0); MEAN CORPUSCULAR HEMOGLOBIN 33.6 pg (26.0-34.0); MEAN CORPUSCULAR HGB CONC 33.6 G/dL (31.0-37.0); MEAN CORPUSCULAR VOLUME 100 fL (80-100); MONOCYTES # (AUTO) 0.6 K/uL (0.1-1.0); MONOCYTES % (AUTO) 9.9 % (2.0-9.0); NEUTROPHILS # (AUTO) 2.2 K/uL (1.8-7.7); NEUTROPHILS % (AUTO) 39.6 % (40.0-70.0); PLATELET COUNT (AUTO) 68 K/uL (150-450); RED BLOOD CELL COUNT(AUTO) 3.58 MIL/uL (4.50-5.90); RED CELL DISTRIBUTION WIDTH 15.8 % (11.5-14.5)
[2018-01-13 20:58] LABS: INR 1.4 (0.9-1.1)
[2018-01-13 20:59] LABS: ANION GAP 5 mmol/L (8-16); CALCIUM, TOTAL 7.7 mg/dL (8.8-10.5); CARBON DIOXIDE 29 mmol/L (22-29); CHLORIDE 106 mmol/L (98-107); CREATININE 0.89 mg/dL (0.60-1.30); GLOMERULAR FILTR. RATE CALC > 60 mL/min (>60); GLUCOSE,RANDOM 114 mg/dL (70-110); SODIUM SERUM 140 mmol/L (136-145); UREA NITROGEN, BLOOD 10 mg/dL (7-18)
[2018-01-13 21:01] LABS: B-TYPE NATRIURETIC PEPTIDE 42 pg/mL (0-100)
[2018-01-13 21:26] LABS: ALANINE AMINOTRANSFERASE 49 U/L (12-78); ALBUMIN 2.2 g/dL (3.4-5.0); ALKALINE PHOSPHATASE 263 U/L (46-116); ASPARTATE AMINOTRANSFERASE 55 U/L (15-37); BILIRUBIN,TOTAL 2.4 mg/dL (0.1-1.0); CREATINE KINASE MB 1.6 ng/mL (0-5); CREATINE KINASE, TOTAL 251 U/L (39-308); TOTAL PROTEIN, SERUM 5.4 g/dL (6.4-8.2)
[2018-01-13 21:35] LABS: APPEARANCE,URINE CLEAR (CLEAR); BILIRUBIN,URINE NEGATIVE (NEGATIVE); GLUCOSE, URINE (UA) NEGATIVE (NEGATIVE); KETONES,URINE NEGATIVE (NEGATIVE); LEUKOCYTE ESTERASE ,URINE NEGATIVE (NEGATIVE); NITRATE,URINE NEGATIVE (NEGATIVE); OCCULT BLOOD,URINE NEGATIVE (NEGATIVE); PROTEIN,URINE NEGATIVE (NEGATIVE)
[2018-01-14] MEDS ORDERED: ONDANSETRON HCL 4 MG/2 ML VIAL IVP PRN
[2018-01-14] MEDS ORDERED: BUMETANIDE 0.25 MG/ML 4 ML VIAL IVP ONE
[2018-01-14] MEDS ORDERED: ACETAMINOPHEN 325 MG TABLET PO PRN
[2018-01-14] MEDS ORDERED: 0.9% SODIUM CHLORIDE 10 ML SYRINGE IVP PRN
[2018-01-14 01:20] VITALS: BP 140/82
[2018-01-14 04:00] VITALS: BP 119/60
[2018-01-14 08:01] LABS: ANION GAP 3 mmol/L (8-16); CALCIUM, TOTAL 7.5 mg/dL (8.8-10.5); CARBON DIOXIDE 31 mmol/L (22-29); CHLORIDE 107 mmol/L (98-107); CREATININE 0.86 mg/dL (0.60-1.30); GLOMERULAR FILTR. RATE CALC > 60 mL/min (>60); GLUCOSE,RANDOM 96 mg/dL (70-110); POTASSIUM 3.7 mmol/L (3.5-5.1); SODIUM SERUM 141 mmol/L (136-145); UREA NITROGEN, BLOOD 11 mg/dL (7-18)
[2018-01-14] MEDS: SUCRALFATE 1 GM TABLET PO SCH ×3 (08:50→20:30)
[2018-01-14] MEDS: SPIRONOLACTONE 50 MG TABLET PO SCH ×2 (08:51→20:30)
[2018-01-14] MEDS: OxyCODONE HCL 10 MG ER TABLET PO PRN (08:51)
[2018-01-14] MEDS: BUMETANIDE 1 MG TABLET PO SCH (08:51)
[2018-01-14] MEDS: HEPARIN SODIUM,PORCINE 5,000 UNITS/ML VIAL SQ SCH ×3 (08:53→20:30)
[2018-01-14] MEDS: PANTOPRAZOLE SODIUM 40 MG DR TABLET PO SCH (08:54)
[2018-01-14] MEDS: POTASSIUM CHLORIDE 10 MEQ ER TABLET PO SCH (08:54)
[2018-01-14] MEDS: ATENOLOL 25 MG TABLET PO SCH (08:54)
[2018-01-14 11:30] VITALS: BP 105/57
[2018-01-14 16:57] VITALS: BP 96/55
[2018-01-14 19:40] VITALS: BP 124/76
[2018-01-14 23:34] VITALS: BP 128/62
[2018-01-15 04:05] VITALS: BP 99/42
[2018-01-15 06:13] LABS: BASOPHILS % (AUTO) 0.8 % (0.0-2.0); EOSINOPHILS % (AUTO) 7.4 % (1.0-6.0); HEMOGLOBIN 11.3 g/dL (13.5-17.5); LYMPHOCYTES # (AUTO) 2.5 K/uL (1.0-4.8); LYMPHOCYTES % (AUTO) 51.1 % (22.0-44.0); MEAN CORPUSCULAR HEMOGLOBIN 35.2 pg (26.0-34.0); MEAN CORPUSCULAR HGB CONC 35.4 G/dL (31.0-37.0); MEAN CORPUSCULAR VOLUME 99 fL (80-100); MONOCYTES # (AUTO) 0.5 K/uL (0.1-1.0); MONOCYTES % (AUTO) 10.4 % (2.0-9.0); NEUTROPHILS # (AUTO) 1.5 K/uL (1.8-7.7); NEUTROPHILS % (AUTO) 30.3 % (40.0-70.0); RED BLOOD CELL COUNT(AUTO) 3.22 MIL/uL (4.50-5.90); RED CELL DISTRIBUTION WIDTH 15.7 % (11.5-14.5)
[2018-01-15] MEDS: PANTOPRAZOLE SODIUM 40 MG DR TABLET PO SCH (06:33)
[2018-01-15 06:39] LABS: ANION GAP 4 mmol/L (8-16); CALCIUM, TOTAL 7.8 mg/dL (8.8-10.5); CARBON DIOXIDE 31 mmol/L (22-29); CHLORIDE 106 mmol/L (98-107); CREATININE 0.88 mg/dL (0.60-1.30); GLOMERULAR FILTR. RATE CALC > 60 mL/min (>60); GLUCOSE,RANDOM 82 mg/dL (70-110); POTASSIUM 3.7 mmol/L (3.5-5.1); SODIUM SERUM 141 mmol/L (136-145); UREA NITROGEN, BLOOD 15 mg/dL (7-18)
[2018-01-15 06:50] LABS: PLATELET COUNT (AUTO) 60 K/uL (150-450)
[2018-01-15 07:17] VITALS: BP 104/52
[2018-01-15] MEDS: BUMETANIDE 1 MG TABLET PO SCH (09:05)
[2018-01-15] MEDS: POTASSIUM CHLORIDE 10 MEQ ER TABLET PO SCH (09:05)
[2018-01-15] MEDS: HEPARIN SODIUM,PORCINE 5,000 UNITS/ML VIAL SQ SCH ×3 (09:05→20:44)
[2018-01-15] MEDS: SUCRALFATE 1 GM TABLET PO SCH ×3 (09:05→20:44)
[2018-01-15] MEDS: SPIRONOLACTONE 50 MG TABLET PO SCH ×3 (09:05→21:00)
[2018-01-15 11:15] VITALS: BP 117/64
[2018-01-15] MEDS: ATENOLOL 25 MG TABLET PO SCH (11:28)
[2018-01-15] MEDS: OxyCODONE HCL 10 MG ER TABLET PO PRN (11:28)
[2018-01-15] MEDS ORDERED: MAGNESIUM SULFATE 1 GM in DEXTROSE 5%-WATER 50 ML IV ONE (15:00)
[2018-01-15] MEDS ORDERED: SODIUM CHLORIDE 0.9% 250 ML IV ONE (15:09)
[2018-01-15 16:59] VITALS: BP 123/66
[2018-01-15 20:25] VITALS: BP 115/53
[2018-01-16 00:36] VITALS: BP 107/59
[2018-01-16 04:24] VITALS: BP 123/75
[2018-01-16] MEDS: PANTOPRAZOLE SODIUM 40 MG DR TABLET PO SCH (05:57)
[2018-01-16] MEDS: ATENOLOL 25 MG TABLET PO SCH (08:20)
[2018-01-16] MEDS: SPIRONOLACTONE 50 MG TABLET PO SCH (08:20)
[2018-01-16] MEDS: BUMETANIDE 1 MG TABLET PO SCH (08:20)
[2018-01-16] MEDS: POTASSIUM CHLORIDE 10 MEQ ER TABLET PO SCH (08:21)
[2018-01-16] MEDS: SUCRALFATE 1 GM TABLET PO SCH (08:21)
[2018-01-16 08:22] VITALS: BP 102/47
[2018-01-16 11:00] VITALS: BP 126/69
== END 2018-01-16 14:00 | disposition home or self-care (01) | DRG 385 ==
LOC: EMS 19:39 → 6N 23:55
PROVIDERS: ADMIT Family Medicine; ATTEND Family Medicine
DX: I89.0 Lymphedema, not elsewhere classified (principal); D69.6 Thrombocytopenia, unspecified; I11.0 Hypertensive heart disease with heart failure; I50.9 Heart failure, unspecified; Z68.42 Body mass index [BMI] 45.0-49.9, adult; E83.42 Hypomagnesemia; K73.9 Chronic hepatitis, unspecified; K27.9 Peptic ulcer, site unspecified, unspecified as acute or chronic, without hemorrhage or perforation; E66.9 Obesity, unspecified; I25.10 Atherosclerotic heart disease of native coronary artery without angina pectoris; K21.9 Gastro-esophageal reflux disease without esophagitis; I25.2 Old myocardial infarction; Z95.5 Presence of coronary angioplasty implant and graft; Z79.899 Other long term (current) drug therapy; Z87.891 Personal history of nicotine dependence
CPT/HCPCS: 83735; 93005; 96374; 99285; J1644; J3475; J3490; J7050; J7060

== ENCOUNTER 2018-01-16 17:41 | Emergency (ER) | payer MEDICAID ==
[~2018-01-16] VITALS: Ht 172.7 cm; Wt 95.0 kg
[~2018-01-16 17:41] MED LIST changes: +KDUR10 PO; +PANT40TA25 PO; -RANI150T7 PO; +SPIR50 PO; +SUCR1TAB PO
[2018-01-16 19:18] LABS: BASOPHILS % (AUTO) 1.1 % (0.0-2.0); EOSINOPHILS % (AUTO) 4.8 % (1.0-6.0); LYMPHOCYTES # (AUTO) 1.8 K/uL (1.0-4.8); LYMPHOCYTES % (AUTO) 34.5 % (22.0-44.0); MEAN CORPUSCULAR HGB CONC 34.2 G/dL (31.0-37.0); MEAN CORPUSCULAR VOLUME 100 fL (80-100); MONOCYTES # (AUTO) 0.6 K/uL (0.1-1.0); MONOCYTES % (AUTO) 11.4 % (2.0-9.0); NEUTROPHILS # (AUTO) 2.5 K/uL (1.8-7.7); NEUTROPHILS % (AUTO) 48.2 % (40.0-70.0); RED BLOOD CELL COUNT(AUTO) 3.82 MIL/uL (4.50-5.90)
[2018-01-16 19:27] LABS: ANION GAP 9 mmol/L (8-16); CALCIUM, TOTAL 8.6 mg/dL (8.8-10.5); CARBON DIOXIDE 28 mmol/L (22-29); CHLORIDE 104 mmol/L (98-107); CREATININE 1.09 mg/dL (0.60-1.30); GLOMERULAR FILTR. RATE CALC > 60 mL/min (>60); GLUCOSE,RANDOM 105 mg/dL (70-110); POTASSIUM 4.2 mmol/L (3.5-5.1); SODIUM SERUM 141 mmol/L (136-145); UREA NITROGEN, BLOOD 15 mg/dL (7-18)
[2018-01-16 19:29] LABS: INR 1.3 (0.9-1.1); PROTHROMBIN TIME 13.6 SEC (9.4-11.6)
[2018-01-16 19:34] LABS: B-TYPE NATRIURETIC PEPTIDE 72 pg/mL (0-100)
[2018-01-16 19:38] LABS: PLATELET COUNT (AUTO) 70 K/uL (150-450); PLATELET MORPHOLOGY COMMENT LARGE PLTS PRESENT
[2018-01-16 19:51] LABS: ALANINE AMINOTRANSFERASE 48 U/L (12-78); ALBUMIN 2.4 g/dL (3.4-5.0); ALKALINE PHOSPHATASE 153 U/L (46-116); ASPARTATE AMINOTRANSFERASE 51 U/L (15-37); BILIRUBIN,TOTAL 3.6 mg/dL (0.1-1.0); CREATINE KINASE MB 1.1 ng/mL (0-5); CREATINE KINASE, TOTAL 193 U/L (39-308)
[2018-01-16] MEDS ORDERED: ONDANSETRON HCL 4 MG TABLET PO ONE (20:30)
[2018-01-16 20:53] LABS: LIPASE 132 U/L (73-393)
[2018-01-16 22:11] VITALS: BP 129/79
== END 2018-01-16 22:12 | disposition home or self-care (01) ==
LOC: EMS 17:43
DX: R11.0 Nausea (principal); I11.0 Hypertensive heart disease with heart failure; I50.9 Heart failure, unspecified; I25.10 Atherosclerotic heart disease of native coronary artery without angina pectoris; I25.2 Old myocardial infarction; K21.9 Gastro-esophageal reflux disease without esophagitis; Z87.891 Personal history of nicotine dependence
CPT/HCPCS: 71045; 76700; 80053; 82550; 82553; 83690; 83880; 84484; 85025; 85610; 85730; 93005; 99285; Q0162

== ENCOUNTER 2018-11-30 22:11 | Inpatient (IN) | payer MEDICAID ==
[~2018-11-30] VITALS: Ht 177.8 cm; Wt 121.6 kg
[~2018-11-30 22:11] MED LIST changes: +LACT10SO8 PO
[2018-11-30 22:43] LABS: BASOPHILS % (AUTO) 1.4 % (0.0-2.0); EOSINOPHILS % (AUTO) 3.9 % (1.0-6.0); HEMATOCRIT 36.8 % (41-53); HEMOGLOBIN 12.2 g/dL (13.5-17.5); LYMPHOCYTES # (AUTO) 1.5 K/uL (1.0-4.8); LYMPHOCYTES % (AUTO) 17.5 % (22.0-44.0); MEAN CORPUSCULAR HEMOGLOBIN 34.5 pg (26.0-34.0); MEAN CORPUSCULAR HGB CONC 33.3 G/dL (31.0-37.0); MEAN CORPUSCULAR VOLUME 104 fL (80-100); MONOCYTES # (AUTO) 1.2 K/uL (0.1-1.0); MONOCYTES % (AUTO) 13.9 % (2.0-9.0); NEUTROPHILS # (AUTO) 5.3 K/uL (1.8-7.7); NEUTROPHILS % (AUTO) 63.3 % (40.0-70.0); RED BLOOD CELL COUNT(AUTO) 3.55 MIL/uL (4.50-5.90); RED CELL DISTRIBUTION WIDTH 17.5 % (11.5-14.5)
[2018-11-30] MEDS ORDERED: FAMOTIDINE 10 MG/ML 2 ML VIAL IVP ONE (22:45)
[2018-11-30 22:55] LABS: INR 1.6 (0.9-1.1); PROTHROMBIN TIME 16.2 SEC (9.4-11.6)
[2018-11-30 22:59] LABS: CALCIUM, TOTAL 8.1 mg/dL (8.8-10.5); CREATININE 1.94 mg/dL (0.60-1.30)
[2018-11-30 23:00] LABS: PLATELET COUNT (AUTO) 57 K/uL (150-450)
[2018-11-30 23:04] LABS: ALBUMIN 1.8 g/dL (3.4-5.0); BILIRUBIN,TOTAL 6.1 mg/dL (0.1-1.0); TOTAL PROTEIN, SERUM 5.1 g/dL (6.4-8.2)
[2018-11-30 23:06] LABS: TROPONIN I 0.05 ng/mL (0.00-0.05)
[2018-11-30] MEDS ORDERED: SODIUM CHLORIDE 0.9% 1,000 ML IV ONE (23:15)
[2018-11-30] MEDS ORDERED: ONDANSETRON HCL 4 MG/2 ML VIAL IVP ONE (23:15)
[2018-11-30] MEDS ORDERED: LACTULOSE 20 GM/30 ML SOLUTION UDCUP PO ONE (23:15)
[2018-12-01] MEDS ORDERED: SODIUM CHLORIDE 0.9% 1,000 ML IV ONE (00:30)
[2018-12-01 02:11] VITALS: BP 131/80
[2018-12-01 04:45] VITALS: BP 134/82
[2018-12-01 07:24] VITALS: BP 141/81
[2018-12-01] MEDS ORDERED: BISACODYL 10 MG RECTAL RECTAL SUPPOSITORY PR PRN (10:00)
[2018-12-01] MEDS ORDERED: ACETAMINOPHEN 325 MG TABLET PO PRN (10:00)
[2018-12-01] MEDS ORDERED: ALBUTEROL SULFATE 2.5 MG/0.5 ML NEB SOLUTION NEB PRN (10:00)
[2018-12-01] MEDS: MORPHINE SULFATE 2 MG/ML SYRINGE IVP PRN (10:15)
[2018-12-01] MEDS: PANTOPRAZOLE SODIUM 40 MG/VIAL IVP SCH ×2 (10:16→20:48)
[2018-12-01 10:33] LABS: BASOPHILS % (AUTO) 0.7 % (0.0-2.0); EOSINOPHILS % (AUTO) 4.8 % (1.0-6.0); HEMATOCRIT 34.3 % (41-53); HEMOGLOBIN 11.7 g/dL (13.5-17.5); LYMPHOCYTES # (AUTO) 1.5 K/uL (1.0-4.8); LYMPHOCYTES % (AUTO) 15.5 % (22.0-44.0); MEAN CORPUSCULAR HEMOGLOBIN 35.4 pg (26.0-34.0); MEAN CORPUSCULAR VOLUME 104 fL (80-100); MONOCYTES # (AUTO) 1.4 K/uL (0.1-1.0); MONOCYTES % (AUTO) 14.2 % (2.0-9.0); NEUTROPHILS # (AUTO) 6.5 K/uL (1.8-7.7); NEUTROPHILS % (AUTO) 64.8 % (40.0-70.0); PLATELET COUNT (AUTO) 52 K/uL (150-450); RED BLOOD CELL COUNT(AUTO) 3.29 MIL/uL (4.50-5.90)
[2018-12-01] MEDS ORDERED: SODIUM CHLORIDE 0.9% 500 ML IV ONE (12:21)
[2018-12-01] MEDS: CefTRIAXone 1 GM/DEXTROSE 50 ML IV SCH (12:26)
[2018-12-01] MEDS: LACTULOSE 20 GM/30 ML SOLUTION UDCUP PO SCH (15:59)
[2018-12-01 19:50] VITALS: BP 138/72
[2018-12-01] MEDS: DOCUSATE SODIUM 100 MG CAPSULE PO SCH (20:15)
[2018-12-02] VITALS (7 sets, daily range): BP systolic 113–142; BP diastolic 69–94
[2018-12-02] MEDS: LACTULOSE 20 GM/30 ML SOLUTION UDCUP PO SCH ×4 (01:00→23:10)
[2018-12-02] MEDS: CefTRIAXone 1 GM/DEXTROSE 50 ML IV SCH ×3 (01:00→23:10)
[2018-12-02] MEDS: MORPHINE SULFATE 2 MG/ML SYRINGE IVP PRN (01:23)
[2018-12-02] MEDS ORDERED: SODIUM CHLORIDE 0.9% 1,000 ML IV ONE ×2 (05:55→07:00)
[2018-12-02 06:10] LABS: BASOPHILS % (AUTO) 1.1 % (0.0-2.0); EOSINOPHILS % (AUTO) 3.8 % (1.0-6.0); HEMATOCRIT 31.6 % (41-53); LYMPHOCYTES # (AUTO) 1.2 K/uL (1.0-4.8); LYMPHOCYTES % (AUTO) 16.5 % (22.0-44.0); MEAN CORPUSCULAR HEMOGLOBIN 35.5 pg (26.0-34.0); MEAN CORPUSCULAR HGB CONC 34.7 G/dL (31.0-37.0); MEAN CORPUSCULAR VOLUME 102 fL (80-100); MONOCYTES # (AUTO) 1.3 K/uL (0.1-1.0); MONOCYTES % (AUTO) 17.5 % (2.0-9.0); NEUTROPHILS # (AUTO) 4.6 K/uL (1.8-7.7); NEUTROPHILS % (AUTO) 61.1 % (40.0-70.0); PLATELET COUNT (AUTO) 56 K/uL (150-450); RED BLOOD CELL COUNT(AUTO) 3.08 MIL/uL (4.50-5.90); RED CELL DISTRIBUTION WIDTH 16.8 % (11.5-14.5)
[2018-12-02 06:28] LABS: ALANINE AMINOTRANSFERASE 228 U/L (12-78); ALBUMIN 1.6 g/dL (3.4-5.0); ALKALINE PHOSPHATASE 137 U/L (46-116); ANION GAP 5 mmol/L (8-16); ASPARTATE AMINOTRANSFERASE 410 U/L (15-37); CALCIUM, TOTAL 8.1 mg/dL (8.8-10.5); CARBON DIOXIDE 27 mmol/L (22-29); CHLORIDE 100 mmol/L (98-107); CREATININE 1.12 mg/dL (0.60-1.30); GLOMERULAR FILTR. RATE CALC > 60 mL/min (>60); GLUCOSE,RANDOM 99 mg/dL (70-110); POTASSIUM 4.3 mmol/L (3.5-5.1); SODIUM SERUM 132 mmol/L (136-145); TOTAL PROTEIN, SERUM 4.4 g/dL (6.4-8.2); UREA NITROGEN, BLOOD 50 mg/dL (7-18)
[2018-12-02] MEDS: DOCUSATE SODIUM 100 MG CAPSULE PO SCH ×2 (09:00→20:20)
[2018-12-02] MEDS: FUROSEMIDE 40 MG/4 ML VIAL IVP SCH (09:19)
[2018-12-02] MEDS: PANTOPRAZOLE SODIUM 40 MG/VIAL IVP SCH ×2 (09:19→20:29)
[2018-12-02] MEDS: ZOLPIDEM TARTRATE 5 MG TABLET PO PRN (20:30)
[2018-12-03 03:54] VITALS: BP 128/66
[2018-12-03 07:23] VITALS: BP 135/70
[2018-12-03 08:29] LABS: ALANINE AMINOTRANSFERASE 199 U/L (12-78); ALBUMIN 1.6 g/dL (3.4-5.0); ALKALINE PHOSPHATASE 151 U/L (46-116); ANION GAP 3 mmol/L (8-16); ASPARTATE AMINOTRANSFERASE 241 U/L (15-37); BILIRUBIN,TOTAL 4.9 mg/dL (0.1-1.0); CALCIUM, TOTAL 7.4 mg/dL (8.8-10.5); CARBON DIOXIDE 27 mmol/L (22-29); CHLORIDE 95 mmol/L (98-107); CREATININE 1.09 mg/dL (0.60-1.30); GLOMERULAR FILTR. RATE CALC > 60 mL/min (>60); GLUCOSE,RANDOM 107 mg/dL (70-110); POTASSIUM 4.2 mmol/L (3.5-5.1); SODIUM SERUM 125 mmol/L (136-145); TOTAL PROTEIN, SERUM 4.4 g/dL (6.4-8.2); UREA NITROGEN, BLOOD 39 mg/dL (7-18)
[2018-12-03] MEDS: DOCUSATE SODIUM 100 MG CAPSULE PO SCH ×2 (08:45→21:25)
[2018-12-03] MEDS: FUROSEMIDE 40 MG/4 ML VIAL IVP SCH (08:45)
[2018-12-03] MEDS: PANTOPRAZOLE SODIUM 40 MG/VIAL IVP SCH (08:45)
[2018-12-03] MEDS: LACTULOSE 20 GM/30 ML SOLUTION UDCUP PO SCH ×3 (09:21→23:54)
[2018-12-03 11:04] VITALS: BP 137/80
[2018-12-03] MEDS: CefTRIAXone 1 GM/DEXTROSE 50 ML IV SCH (12:12)
[2018-12-03 15:22] VITALS: BP 141/48
[2018-12-03 19:49] VITALS: BP 144/72
[2018-12-03] MEDS: PANTOPRAZOLE SODIUM 40 MG DR TABLET PO SCH (21:25)
[2018-12-03] MEDS: ZOLPIDEM TARTRATE 5 MG TABLET PO PRN (21:29)
[2018-12-04 00:46] VITALS: BP 133/78
[2018-12-04 04:54] VITALS: BP 133/74
[2018-12-04 06:57] LABS: ALANINE AMINOTRANSFERASE 178 U/L (12-78); ALBUMIN 1.7 g/dL (3.4-5.0); ALKALINE PHOSPHATASE 167 U/L (46-116); ANION GAP 7 mmol/L (8-16); ASPARTATE AMINOTRANSFERASE 158 U/L (15-37); BILIRUBIN,TOTAL 4.5 mg/dL (0.1-1.0); CALCIUM, TOTAL 8.2 mg/dL (8.8-10.5); CARBON DIOXIDE 24 mmol/L (22-29); CHLORIDE 94 mmol/L (98-107); CREATININE 1.12 mg/dL (0.60-1.30); GLOMERULAR FILTR. RATE CALC > 60 mL/min (>60); GLUCOSE,RANDOM 99 mg/dL (70-110); POTASSIUM 4.4 mmol/L (3.5-5.1); SODIUM SERUM 125 mmol/L (136-145); TOTAL PROTEIN, SERUM 4.8 g/dL (6.4-8.2); UREA NITROGEN, BLOOD 36 mg/dL (7-18)
[2018-12-04 07:37] VITALS: BP 141/73
[2018-12-04] MEDS: PANTOPRAZOLE SODIUM 40 MG DR TABLET PO SCH (08:01)
[2018-12-04] MEDS: LACTULOSE 20 GM/30 ML SOLUTION UDCUP PO SCH (08:02)
[2018-12-04] MEDS: DOCUSATE SODIUM 100 MG CAPSULE PO SCH (08:03)
[2018-12-04] MEDS ORDERED: FUROSEMIDE 20 MG TABLET PO SCH ×2 (09:00)
[2018-12-04 11:14] VITALS: BP 130/74
[2018-12-04] MEDS: CefTRIAXone 1 GM/DEXTROSE 50 ML IV SCH ×2 (11:39)
== END 2018-12-04 13:00 | disposition home health service (06) | DRG 279 ==
LOC: EMS 22:13 → 5N 23:06
PROVIDERS: ADMIT Internal Medicine; ATTEND Internal Medicine
PROC: 0DB68ZX Excision of Stomach, Via Natural or Artificial Opening Endoscopic, Diagnostic (ICD-10-PCS; principal; 2018-12-02 08:00)
DX: K72.90 Hepatic failure, unspecified without coma (principal); I85.11 Secondary esophageal varices with bleeding; E43 Unspecified severe protein-calorie malnutrition; N17.9 Acute kidney failure, unspecified; D68.9 Coagulation defect, unspecified; D69.6 Thrombocytopenia, unspecified; E87.1 Hypo-osmolality and hyponatremia; I11.0 Hypertensive heart disease with heart failure; K74.60 Unspecified cirrhosis of liver; R18.8 Other ascites; E66.9 Obesity, unspecified; I25.10 Atherosclerotic heart disease of native coronary artery without angina pectoris; D64.9 Anemia, unspecified; I70.0 Atherosclerosis of aorta; J47.9 Bronchiectasis, uncomplicated; J84.10 Pulmonary fibrosis, unspecified; K21.9 Gastro-esophageal reflux disease without esophagitis; K40.90 Unilateral inguinal hernia, without obstruction or gangrene, not specified as recurrent; K57.90 Diverticulosis of intestine, part unspecified, without perforation or abscess without bleeding; K76.6 Portal hypertension; M46.05 Spinal enthesopathy, thoracolumbar region; I25.2 Old myocardial infarction; Z82.49 Family history of ischemic heart disease and other diseases of the circulatory system; Z87.11 Personal history of peptic ulcer disease; Z87.891 Personal history of nicotine dependence; Z91.19 Patient's noncompliance with other medical treatment and regimen; Z95.5 Presence of coronary angioplasty implant and graft; Z68.38 Body mass index [BMI] 38.0-38.9, adult
CPT/HCPCS: 74176; 76700; 82271; 86850; 86900; 86901; 87081; 88305; 88312; 88313; 93005; 93306; 96374; 96375; 97116; 97162; 97530; C9113; G0378; J0696; J1940; J2270; J2405; J3490; J7030; J7040

== ENCOUNTER 2018-12-07 12:55 | Emergency (ER) | payer MEDICAID ==
[~2018-12-07] VITALS: Ht 172.7 cm; Wt 113.6 kg
[~2018-12-07 12:55] MED LIST changes: -ATEN25TA PO; -KDUR10 PO; -SPIR50 PO
[2018-12-07 14:13] LABS: BASOPHILS % (AUTO) 1.2 % (0.0-2.0); HEMATOCRIT 33.9 % (41-53); HEMOGLOBIN 11.6 g/dL (13.5-17.5); LYMPHOCYTES # (AUTO) 1.4 K/uL (1.0-4.8); MEAN CORPUSCULAR HEMOGLOBIN 35.4 pg (26.0-34.0); MEAN CORPUSCULAR HGB CONC 34.1 G/dL (31.0-37.0); MEAN CORPUSCULAR VOLUME 104 fL (80-100); MONOCYTES # (AUTO) 0.9 K/uL (0.1-1.0); MONOCYTES % (AUTO) 14.4 % (2.0-9.0); NEUTROPHILS # (AUTO) 3.8 K/uL (1.8-7.7); NEUTROPHILS % (AUTO) 59.4 % (40.0-70.0); PLATELET COUNT (AUTO) 94 K/uL (150-450); RED BLOOD CELL COUNT(AUTO) 3.27 MIL/uL (4.50-5.90)
[2018-12-07 14:15] LABS: CALCIUM, TOTAL 7.5 mg/dL (8.8-10.5); CREATININE 1.48 mg/dL (0.60-1.30); POTASSIUM 3.9 mmol/L (3.5-5.1)
[2018-12-07 14:20] LABS: ALBUMIN 1.6 g/dL (3.4-5.0); BILIRUBIN,TOTAL 3.8 mg/dL (0.1-1.0); TOTAL PROTEIN, SERUM 4.9 g/dL (6.4-8.2)
[2018-12-07] MEDS ORDERED: PENTETATE DTPA TC99M/MCL ISOTOPE 1 EA INJ INJ ONE (16:50)
[2018-12-07] MEDS ORDERED: MAA ALBUMIN AGGREGATED TC99M/UD<10MCL ISOTOPE 1 EA INJ INJ ONE (17:05)
[2018-12-07] MEDS ORDERED: CYCLOBENZAPRINE HCL 10 MG TABLET PO ONE (19:00)
[2018-12-07 20:40] VITALS: BP 121/67
== END 2018-12-07 21:01 | disposition home or self-care (01) ==
LOC: EMS 12:56
DX: R06.02 Shortness of breath (principal); K74.60 Unspecified cirrhosis of liver; R74.0 Nonspecific elevation of levels of transaminase and lactic acid dehydrogenase [LDH]; E88.09 Other disorders of plasma-protein metabolism, not elsewhere classified; E80.7 Disorder of bilirubin metabolism, unspecified; I11.0 Hypertensive heart disease with heart failure; I50.9 Heart failure, unspecified; I25.10 Atherosclerotic heart disease of native coronary artery without angina pectoris; K21.9 Gastro-esophageal reflux disease without esophagitis; I25.2 Old myocardial infarction; Z87.891 Personal history of nicotine dependence
CPT/HCPCS: 36415; 71045; 78582; 80053; 83880; 84484; 85025; 93005; 99285; A9539; A9540

== ENCOUNTER 2019-02-27 13:03 | Inpatient (IN) | payer MEDICAID ==
[~2019-02-27] VITALS: Ht 172.7 cm; Wt 107.5 kg
[2019-02-27 14:09] LABS: GLUCOSE,POINT OF CARE 122 MG/DL (70-110)
[2019-02-27 14:45] LABS: BASOPHILS % (AUTO) 1.2 % (0.0-2.0); EOSINOPHILS % (AUTO) 1.8 % (1.0-6.0); HEMATOCRIT 35.8 % (41-53); HEMOGLOBIN 12.1 g/dL (13.5-17.5); LYMPHOCYTES # (AUTO) 1.6 K/uL (1.0-4.8); LYMPHOCYTES % (AUTO) 33.4 % (22.0-44.0); MEAN CORPUSCULAR HEMOGLOBIN 33.4 pg (26.0-34.0); MEAN CORPUSCULAR HGB CONC 33.9 G/dL (31.0-37.0); MEAN CORPUSCULAR VOLUME 98 fL (80-100); MONOCYTES # (AUTO) 0.6 K/uL (0.1-1.0); MONOCYTES % (AUTO) 13.7 % (2.0-9.0); NEUTROPHILS # (AUTO) 2.3 K/uL (1.8-7.7); NEUTROPHILS % (AUTO) 49.9 % (40.0-70.0); PLATELET COUNT (AUTO) 67 K/uL (150-450); RED BLOOD CELL COUNT(AUTO) 3.63 MIL/uL (4.50-5.90); RED CELL DISTRIBUTION WIDTH 16.9 % (11.5-14.5)
[2019-02-27 14:47] LABS: INR 1.4 (0.9-1.1); PROTHROMBIN TIME 14.8 SEC (9.4-11.6)
[2019-02-27 14:48] LABS: ANION GAP 6 mmol/L (8-16); CALCIUM, TOTAL 8.8 mg/dL (8.8-10.5); CARBON DIOXIDE 28 mmol/L (22-29); CHLORIDE 100 mmol/L (98-107); CREATININE 1.36 mg/dL (0.60-1.30); GLOMERULAR FILTR. RATE CALC 54 mL/min (>60); GLUCOSE,RANDOM 113 mg/dL (70-110); POTASSIUM 4.4 mmol/L (3.5-5.1); SODIUM SERUM 134 mmol/L (136-145); UREA NITROGEN, BLOOD 25 mg/dL (7-18)
[2019-02-27 14:56] LABS: TROPONIN I 0.03 ng/mL (0.00-0.05)
[2019-02-27 15:09] LABS: B-TYPE NATRIURETIC PEPTIDE 72 pg/mL (0-100)
[2019-02-27 15:13] LABS: ALANINE AMINOTRANSFERASE 65 U/L (12-78); ALBUMIN 2.1 g/dL (3.4-5.0); ALKALINE PHOSPHATASE 240 U/L (46-116); ASPARTATE AMINOTRANSFERASE 100 U/L (15-37); CREATINE KINASE, TOTAL ONLY 353 U/L (39-308); TOTAL PROTEIN, SERUM 5.6 g/dL (6.4-8.2)
[2019-02-27] MEDS ORDERED: LACTULOSE 20 GM/30 ML SOLUTION UDCUP PO ONE (15:30)
[2019-02-27] MEDS ORDERED: ONDANSETRON HCL 4 MG/2 ML VIAL IVP PRN (16:00)
[2019-02-27 16:03] LABS: AMPHET/METH SCREEN,URINE NEGATIVE (NEGATIVE); BARBITURATE SCREEN, URINE NEGATIVE (NEGATIVE); BENZODIAZEPINES SCREEN,URINE NEGATIVE (NEGATIVE); CANNABINOID SCREEN,URINE NEGATIVE (NEGATIVE); COCAINE SCREEN,URINE NEGATIVE (NEGATIVE); METHADONE SCREEN, URINE NEGATIVE (NEGATIVE); OPIATE SCREEN,URINE NEGATIVE (NEGATIVE)
[2019-02-27 16:07] LABS: PHENCYCLIDINE SCREEN,URINE NEGATIVE (NEGATIVE)
[2019-02-27 16:22] LABS: APPEARANCE,URINE CLEAR (CLEAR); BILIRUBIN,URINE NEGATIVE (NEGATIVE); GLUCOSE, URINE (UA) NEGATIVE (NEGATIVE); KETONES,URINE NEGATIVE (NEGATIVE); LEUKOCYTE ESTERASE ,URINE NEGATIVE (NEGATIVE); NITRATE,URINE NEGATIVE (NEGATIVE); OCCULT BLOOD,URINE NEGATIVE (NEGATIVE); PROTEIN,URINE NEGATIVE (NEGATIVE)
[2019-02-27] MEDS ORDERED: BISACODYL 10 MG RECTAL RECTAL SUPPOSITORY PR PRN (16:30)
[2019-02-27] MEDS ORDERED: MORPHINE SULFATE 2 MG/ML SYRINGE IVP PRN (16:30)
[2019-02-27] MEDS ORDERED: MAGNESIUM HYDROXIDE SUSPENSION 30 ML UDCUP PO PRN (16:30)
[2019-02-27] MEDS ORDERED: HYDROCODONE/ACETAMINOPHEN 5-325 MG TABLET PO PRN (16:30)
[2019-02-27] MEDS ORDERED: ZOLPIDEM TARTRATE 5 MG TABLET PO PRN (16:30)
[2019-02-27] MEDS ORDERED: ACETAMINOPHEN 325 MG TABLET PO PRN (16:30)
[2019-02-27] MEDS ORDERED: MAGNESIUM SULFATE 2 GM, MVI, ADULT NO.1 WITH VIT K 10 ML, THIAMINE HCL 100 MG, FOLIC AC... IV ONE ×5 (17:00)
[2019-02-27 20:57] VITALS: BP 124/78
[2019-02-27] MEDS ORDERED: LACTULOSE 200 GM/300 ML RECTAL SOLUTION PR SCH (21:00)
[2019-02-27] MEDS ORDERED: CARB100 PO (21:01)
[2019-02-27] MEDS ORDERED: XALA2.5OS (21:01)
[2019-02-27] MEDS ORDERED: PREM3 PO (21:01)
[2019-02-27] MEDS ORDERED: ATOR10TA84 PO (21:01)
[2019-02-27] MEDS ORDERED: DULA0.75 (21:01)
[2019-02-27] MEDS ORDERED: LACTULOSE 20 GM/30 ML SOLUTION UDCUP PO SCH (21:45)
[2019-02-27] MEDS: DOCUSATE SODIUM 100 MG CAPSULE PO SCH (22:00)
[2019-02-27] MEDS: SUCRALFATE 1 GM TABLET PO SCH (22:00)
[2019-02-27] MEDS: LACTULOSE 20 GM/30 ML SOLUTION UDCUP PO SCH (22:06)
[2019-02-27 23:45] VITALS: BP 113/70
[2019-02-28] MEDS ORDERED: HEPARIN SODIUM,PORCINE 5,000 UNITS/ML VIAL SQ SCH
[2019-02-28 04:41] VITALS: BP 116/60
[2019-02-28 06:12] LABS: BASOPHILS % (AUTO) 0.5 % (0.0-2.0); EOSINOPHILS % (AUTO) 2.8 % (1.0-6.0); HEMATOCRIT 32.2 % (41-53); LYMPHOCYTES # (AUTO) 2.2 K/uL (1.0-4.8); MEAN CORPUSCULAR HEMOGLOBIN 33.9 pg (26.0-34.0); MEAN CORPUSCULAR HGB CONC 34.3 G/dL (31.0-37.0); MEAN CORPUSCULAR VOLUME 99 fL (80-100); MONOCYTES # (AUTO) 0.7 K/uL (0.1-1.0); MONOCYTES % (AUTO) 14.7 % (2.0-9.0); NEUTROPHILS # (AUTO) 1.8 K/uL (1.8-7.7); RED BLOOD CELL COUNT(AUTO) 3.26 MIL/uL (4.50-5.90)
[2019-02-28 06:20] LABS: ALANINE AMINOTRANSFERASE 54 U/L (12-78); ALBUMIN 1.8 g/dL (3.4-5.0); ALKALINE PHOSPHATASE 238 U/L (46-116); ANION GAP 7 mmol/L (8-16); ASPARTATE AMINOTRANSFERASE 85 U/L (15-37); BILIRUBIN,TOTAL 3.5 mg/dL (0.1-1.0); CALCIUM, TOTAL 8.5 mg/dL (8.8-10.5); CARBON DIOXIDE 26 mmol/L (22-29); CHLORIDE 103 mmol/L (98-107); CREATININE 1.15 mg/dL (0.60-1.30); GLOMERULAR FILTR. RATE CALC > 60 mL/min (>60); GLUCOSE,RANDOM 106 mg/dL (70-110); POTASSIUM 4.3 mmol/L (3.5-5.1); SODIUM SERUM 136 mmol/L (136-145); TOTAL PROTEIN, SERUM 5.1 g/dL (6.4-8.2); UREA NITROGEN, BLOOD 21 mg/dL (7-18)
[2019-02-28 07:34] LABS: PLATELET COUNT (AUTO) 63 K/uL (150-450)
[2019-02-28 07:40] VITALS: BP 123/69
[2019-02-28] MEDS: BUMETANIDE 1 MG TABLET PO SCH (08:10)
[2019-02-28] MEDS: LACTULOSE 20 GM/30 ML SOLUTION UDCUP PO SCH ×3 (08:11→20:10)
[2019-02-28] MEDS: DOCUSATE SODIUM 100 MG CAPSULE PO SCH ×2 (08:11→20:10)
[2019-02-28] MEDS: PANTOPRAZOLE SODIUM 40 MG DR TABLET PO SCH (08:11)
[2019-02-28] MEDS: SUCRALFATE 1 GM TABLET PO SCH ×4 (08:11→20:10)
[2019-02-28] MEDS ORDERED: LACTULOSE 20 GM/30 ML SOLUTION UDCUP PO SCH (09:00)
[2019-02-28 11:18] VITALS: BP 115/59
[2019-02-28 15:12] VITALS: BP 113/65
[2019-02-28] MEDS: RIFAXIMIN 550 MG TABLET PO SCH ×2 (15:49→20:10)
[2019-02-28 19:00] VITALS: BP 124/59
[2019-02-28 23:00] VITALS: BP 144/72
[2019-03-01 04:00] VITALS: BP 136/76
[2019-03-01 06:25] LABS: BASOPHILS % (AUTO) 1.2 % (0.0-2.0); EOSINOPHILS % (AUTO) 2.8 % (1.0-6.0); HEMATOCRIT 35.5 % (41-53); HEMOGLOBIN 12.1 g/dL (13.5-17.5); LYMPHOCYTES # (AUTO) 2.4 K/uL (1.0-4.8); LYMPHOCYTES % (AUTO) 44.8 % (22.0-44.0); MEAN CORPUSCULAR VOLUME 100 fL (80-100); MONOCYTES # (AUTO) 0.5 K/uL (0.1-1.0); MONOCYTES % (AUTO) 9.8 % (2.0-9.0); NEUTROPHILS # (AUTO) 2.2 K/uL (1.8-7.7); NEUTROPHILS % (AUTO) 41.4 % (40.0-70.0); PLATELET COUNT (AUTO) 66 K/uL (150-450); RED BLOOD CELL COUNT(AUTO) 3.55 MIL/uL (4.50-5.90)
[2019-03-01 07:19] LABS: ANION GAP 6 mmol/L (8-16); CALCIUM, TOTAL 8.5 mg/dL (8.8-10.5); CARBON DIOXIDE 26 mmol/L (22-29); CHLORIDE 103 mmol/L (98-107); CREATININE 1.14 mg/dL (0.60-1.30); GLOMERULAR FILTR. RATE CALC > 60 mL/min (>60); GLUCOSE,RANDOM 96 mg/dL (70-110); POTASSIUM 4.7 mmol/L (3.5-5.1); SODIUM SERUM 135 mmol/L (136-145); UREA NITROGEN, BLOOD 19 mg/dL (7-18)
[2019-03-01 08:10] VITALS: BP 117/63
[2019-03-01] MEDS: LACTULOSE 20 GM/30 ML SOLUTION UDCUP PO SCH ×3 (08:23→22:08)
[2019-03-01] MEDS: RIFAXIMIN 550 MG TABLET PO SCH ×3 (08:24→22:07)
[2019-03-01] MEDS: SUCRALFATE 1 GM TABLET PO SCH ×4 (08:25→22:07)
[2019-03-01] MEDS: PANTOPRAZOLE SODIUM 40 MG DR TABLET PO SCH (08:26)
[2019-03-01] MEDS: DOCUSATE SODIUM 100 MG CAPSULE PO SCH ×2 (08:27→22:07)
[2019-03-01] MEDS: BUMETANIDE 1 MG TABLET PO SCH (08:32)
[2019-03-01] MEDS: ONDANSETRON HCL 4 MG/2 ML VIAL IVP PRN ×2 (10:11→22:08)
[2019-03-01 11:09] VITALS: BP 128/79
[2019-03-01 16:11] VITALS: BP 121/80
[2019-03-01 20:30] VITALS: BP 129/70
[2019-03-01 23:45] VITALS: BP 137/78
[2019-03-02 05:04] VITALS: BP 138/72
[2019-03-02 06:26] LABS: ANION GAP 3 mmol/L (8-16); BASOPHILS % (AUTO) 1.2 % (0.0-2.0); CALCIUM, TOTAL 8.3 mg/dL (8.8-10.5); CARBON DIOXIDE 30 mmol/L (22-29); CHLORIDE 100 mmol/L (98-107); EOSINOPHILS % (AUTO) 4.7 % (1.0-6.0); GLOMERULAR FILTR. RATE CALC > 60 mL/min (>60); GLUCOSE,RANDOM 75 mg/dL (70-110); HEMATOCRIT 31.7 % (41-53); HEMOGLOBIN 11.1 g/dL (13.5-17.5); LYMPHOCYTES # (AUTO) 2.1 K/uL (1.0-4.8); LYMPHOCYTES % (AUTO) 41.5 % (22.0-44.0); MEAN CORPUSCULAR HEMOGLOBIN 34.5 pg (26.0-34.0); MEAN CORPUSCULAR HGB CONC 35.1 G/dL (31.0-37.0); MEAN CORPUSCULAR VOLUME 98 fL (80-100); MONOCYTES # (AUTO) 0.6 K/uL (0.1-1.0); MONOCYTES % (AUTO) 12.5 % (2.0-9.0); NEUTROPHILS % (AUTO) 40.1 % (40.0-70.0); PLATELET COUNT (AUTO) 63 K/uL (150-450); POTASSIUM 4.7 mmol/L (3.5-5.1); RED BLOOD CELL COUNT(AUTO) 3.23 MIL/uL (4.50-5.90); SODIUM SERUM 133 mmol/L (136-145); UREA NITROGEN, BLOOD 18 mg/dL (7-18)
[2019-03-02 07:51] VITALS: BP 133/78
[2019-03-02] MEDS: ONDANSETRON HCL 4 MG/2 ML VIAL IVP PRN ×2 (08:07→16:18)
[2019-03-02] MEDS: RIFAXIMIN 550 MG TABLET PO SCH ×3 (08:45→20:22)
[2019-03-02] MEDS: LACTULOSE 20 GM/30 ML SOLUTION UDCUP PO SCH ×3 (08:45→20:27)
[2019-03-02] MEDS: BUMETANIDE 1 MG TABLET PO SCH (08:45)
[2019-03-02] MEDS: PANTOPRAZOLE SODIUM 40 MG DR TABLET PO SCH (08:45)
[2019-03-02] MEDS: SUCRALFATE 1 GM TABLET PO SCH ×4 (08:46→20:22)
[2019-03-02] MEDS: DOCUSATE SODIUM 100 MG CAPSULE PO SCH ×2 (09:00→20:23)
[2019-03-02 11:41] VITALS: BP 123/70
[2019-03-02 14:53] VITALS: BP 130/64
[2019-03-02 20:30] VITALS: BP 115/63
[2019-03-03 00:45] VITALS: BP 117/59
[2019-03-03 04:50] VITALS: BP 100/63
[2019-03-03 05:58] LABS: BASOPHILS % (AUTO) 1.5 % (0.0-2.0); EOSINOPHILS % (AUTO) 3.6 % (1.0-6.0); HEMATOCRIT 33.3 % (41-53); HEMOGLOBIN 11.2 g/dL (13.5-17.5); LYMPHOCYTES # (AUTO) 2.1 K/uL (1.0-4.8); LYMPHOCYTES % (AUTO) 39.5 % (22.0-44.0); MEAN CORPUSCULAR HEMOGLOBIN 33.4 pg (26.0-34.0); MEAN CORPUSCULAR HGB CONC 33.6 G/dL (31.0-37.0); MEAN CORPUSCULAR VOLUME 100 fL (80-100); MONOCYTES # (AUTO) 0.6 K/uL (0.1-1.0); MONOCYTES % (AUTO) 11.2 % (2.0-9.0); NEUTROPHILS # (AUTO) 2.3 K/uL (1.8-7.7); NEUTROPHILS % (AUTO) 44.2 % (40.0-70.0); RED BLOOD CELL COUNT(AUTO) 3.35 MIL/uL (4.50-5.90); RED CELL DISTRIBUTION WIDTH 16.5 % (11.5-14.5)
[2019-03-03 06:01] LABS: CALCIUM, TOTAL 8.2 mg/dL (8.8-10.5); CREATININE 1.27 mg/dL (0.60-1.30); POTASSIUM 4.6 mmol/L (3.5-5.1)
[2019-03-03 06:56] LABS: PLATELET COUNT (AUTO) 68 K/uL (150-450)
[2019-03-03 07:59] VITALS: BP 129/69
[2019-03-03] MEDS: LACTULOSE 20 GM/30 ML SOLUTION UDCUP PO SCH (08:34)
[2019-03-03] MEDS: RIFAXIMIN 550 MG TABLET PO SCH (08:35)
[2019-03-03] MEDS: SUCRALFATE 1 GM TABLET PO SCH ×2 (08:35→13:32)
[2019-03-03] MEDS: BUMETANIDE 1 MG TABLET PO SCH (08:35)
[2019-03-03] MEDS: PANTOPRAZOLE SODIUM 40 MG DR TABLET PO SCH (08:35)
[2019-03-03] MEDS: DOCUSATE SODIUM 100 MG CAPSULE PO SCH (08:35)
[2019-03-03 11:50] VITALS: BP 131/70
== END 2019-03-03 15:10 | disposition home or self-care (01) | DRG 279 ==
LOC: EMS 13:03 → 5S 18:35
PROVIDERS: ADMIT Internal Medicine; ATTEND Internal Medicine
DX: K72.00 Acute and subacute hepatic failure without coma (principal); D69.6 Thrombocytopenia, unspecified; I50.9 Heart failure, unspecified; I13.0 Hypertensive heart and chronic kidney disease with heart failure and stage 1 through stage 4 chronic kidney disease, or unspecified chronic kidney disease; K74.60 Unspecified cirrhosis of liver; N18.3 Chronic kidney disease, stage 3 (moderate); G47.00 Insomnia, unspecified; I25.10 Atherosclerotic heart disease of native coronary artery without angina pectoris; D64.9 Anemia, unspecified; K21.9 Gastro-esophageal reflux disease without esophagitis; Z87.11 Personal history of peptic ulcer disease
CPT/HCPCS: 93005; 97162; G0378; G0480; J2405; J3411; J3475; J3490; J7030